=== PATIENT | female | born 1970 | race Caucasian/White ===

== ENCOUNTER 2020-10-02 16:25 | Inpatient (IN) | payer OTHER ==
[~2020-10-02] VITALS: Ht 154.9 cm; Wt 109.5 kg
[2020-10-02 16:53] LABS: BASOPHILS ABSOLUTE AUTO 0.13 K/mm3 (0.00-0.23); BASOPHILS PERCENT AUTO 0 % (0-2); Hematocrit 29.7 % (33.0-51.0); Hemoglobin 9.6 g/dL (11.5-16.0); LYMPHOCYTES ABSOLUTE AUTO 1.42 K/mm3 (0.84-5.20); LYMPHOCYTES PERCENT AUTO 3 % (21-46); MONOCYTES PERCENT AUTO 2 % (4-13); Mean Corpuscular HGB 25.6 pg (26.0-34.0); Mean Corpuscular HGB Conc 32.3 g/dL (31.5-36.5); Mean Corpuscular Volume 79 fL (80-100); Mean Platelet Volume 12.8 fL (9.1-12.4); Platelet Count 196 K/mm3 (150-400); RDW Coefficient Variation 15.9 % (11.7-14.2); RDW Standard Deviation 45.5 fL (35.1-46.3); Red Blood Cell Count 3.75 M/mm3 (3.80-5.20); White Blood Cell Count 42.94 K/mm3 (4.00-11.30)
[2020-10-02 16:56] LABS: EOSINOPHILS PERCENT AUTO 0 % (0-6); IMMATURE GRAN ABSOLUTE AUTO 2.07 K/mm3 (0.00-0.10); IMMATURE GRAN PERCENT AUTO 5 % (0-1); NEUTROPHILS ABSOLUTE AUTO 38.42 K/mm3 (1.96-9.15); NEUTROPHILS PERCENT AUTO 90 % (41-73)
[2020-10-02 17:22] LABS: Albumin, Blood 1.2 g/dL (3.4-5.0); Albumin/Globulin Ratio 0.2 (0.8-1.8); Bilirubin, Total 1.1 mg/dL (0.1-1.0); Bun/Creatinine Ratio 10.7 (12.0-20.0); Calcium, Blood 7.6 mg/dL (8.5-10.1); Creatinine, Blood 3.17 mg/dL (0.40-1.00); Globulin, Blood 5.3 g/dL (2.2-4.0); Potassium, Blood 3.6 mmol/L (3.5-5.5); Total Protein, Blood 6.5 g/dL (6.4-8.2)
[2020-10-02 17:52] LABS: Magnesium, Blood 1.8 mg/dL (1.6-2.4); Troponin I <0.015 ng/mL (0.000-0.040)
[2020-10-02 17:53] LABS: Source, Urine Clean Catch
[2020-10-02 18:03] LABS: Appearance, Urine Turbid (Clear); Bilirubin, Urine Neg (Neg); Blood, Urine 5+ (Neg); Color, Urine Brown (P-Yellow); Glucose Qualitative, Urine 4+ (Neg); Ketones, Urine 1+ (Neg); Leukocyte Esterase, Urine 3+ (Neg); Nitrite, Urine Pos (Neg); Protein, Urine 4+ (Neg); Specific Gravity, Urine 1.015 (1.003-1.022); Urobilinogen, Urine 1+ (Normal)
[2020-10-02 18:28] LABS: Beta-hydroxybutyrate 3.4 mg/dL (0.2-2.8)
[2020-10-02 18:46] LABS: Bacteria Many /hpf; Red Blood Cells, Urine TNTC /hpf (0-2); Squamous Epithelial Cells Few /hpf (Few); White Blood Cells, Urine TNTC /hpf (0-5)
[2020-10-02 19:33] LABS: Influenza A, PCR NEGATIVE (NEGATIVE); Influenza B, PCR NEGATIVE (NEGATIVE); Resp Syncytial Virus, PCR NEGATIVE (NEGATIVE); SARS-Cov-2 (COVID-19) PCR, MMC NEGATIVE (NEGATIVE)
[2020-10-02 20:51] LABS: Base Excess Venous -5.6 mmol/L; Bicarbonate Venous 20.3 mmol/L (24.0-30.0); PCO2 Venous 33.3 mmHg (38-42); PO2 Venous 126 mmHg (38-42); pH Blood Venous 7.38 (7.34-7.37)
[2020-10-02 21:17] LABS: Glucose, Blood 531 mg/dL (70-99)
[2020-10-02 22:38] LABS: Glucose, Blood 550 mg/dL (70-99)
--- NOTE | 2020-10-02 23:00 | NUR ---
Admit from ED to ICU 2044 Pt to ICU 2 via asher, accompanied by ED nurse Charles and coating technician. A/O X 4, able to answer all questions and assist with turns in bed. Pt states she has not seen provider since 2011 and does not have any comorbidities. Pt is on RA, NSR, and VSS. Upon arrival insulin GTT 4 u/hr (infusing via left hand IV), see flow sheet. Pt appears diaphoretic and flushed. Denies nausea and pain upon arrival. No V/D. Able to use bedpan to urinate, cloudy tea colored sediment urine output. Pt denies burning or frequent urination. Lower extrems elevated due to pt having edema. Will continue to monitor.
[2020-10-02 23:01] LABS: U Amphetamine Screen DETECTED; U Barbituate Screen Not Detected; U Benzodiazapine Screen Not Detected; U Buprenorphine Screen Not Detected; U Cannabinoids Screen Not Detected; U Cocaine Screen Not Detected; U Methadone Screen Not Detected; U Methamphetamine Screen DETECTED; U Opiates Screen Not Detected; U Oxycodone Screen Not Detected; U Phencyclidine Screen Not Detected; U Propoxyphene Screen Not Detected
--- NOTE | 2020-10-03 | NUR ---
Update - ED fluids Attempted to contact Charles ED nurse to confirm amount of fluid patient recieved. Nurse gone home for the day, unable to confirm Called pharmacy to confirm fluids not recieved. Pharmacy states 2 L of NS removed from [facility] but only one bag was documented on. Per ED nurse report patient recieved 2 L NS in ED. jd edwards developer, Lacey, also printed report from pyxis to confirm fluids removed and asked to document against fluids in emar. Also, noticed patient did not receive 2 L LR in ED. Updated Beth CARD GRINDER HELPER, recieved orders to start LR (not WO but over two hours). Confirmed with pharmacy that pt did not recieved LR in ED. Pharmacist changed ED orders to allow this nurse to pull fluids from pyxis, see emar.
--- NOTE | 2020-10-03 01:00 | NUR ---
Update Patient was nausea, treated with Zofran with good effect. Currently sleeping. VSS. NSR. Insulin gtt 7 u/hr.
--- NOTE | 2020-10-03 03:59 | NUR ---
Update Provider Call Pt hyperventilating (RR 40-50's, SPO2 88), hypertensive, and shaking. This occured while warehouse general laborer attempting to draw blood for morning labs (difficult draw). Pt denies nausea or pain. States being cold. Charge nurse at bedside to help motor coach tour operator patient to slow down breathing. Dr. Mae called and updated on pt status. New orders reiceved, see emar. One time dose of Ativan given with good effect. Pt placed on 1 L via NC, SPO2 > 90%. Call light within reach. Insulin GTT 7 u/hr.
[2020-10-03 05:03] LABS: Hematocrit 29.5 % (33.0-51.0); Hemoglobin 9.8 g/dL (11.5-16.0); Mean Corpuscular HGB 25.8 pg (26.0-34.0); Mean Corpuscular HGB Conc 33.2 g/dL (31.5-36.5); Mean Corpuscular Volume 78 fL (80-100); Mean Platelet Volume 12.4 fL (9.1-12.4); Platelet Count 139 K/mm3 (150-400); RDW Coefficient Variation 15.6 % (11.7-14.2); RDW Standard Deviation 43.4 fL (35.1-46.3); White Blood Cell Count 27.62 K/mm3 (4.00-11.30)
--- NOTE | 2020-10-03 05:30 | NUR ---
Shift Summary Pt resting t/o shift except one episode of increased RR, hypertension, shaking, and decreased SPO2, see previous note. Pt is A/O X 4 and able to turn self in bed. Insulin GTT 6 u/hr, see flow sheet. Pt has KCL infusing via right AC, see emar. Pt with increased temp (100.5) temporal, continues to appear flushed/clammy. One episode of nausea t/o shift, treated per emar. Pt uses bedpan frequently, dark tea colored sedimented urine. BP has improved after one time dose of Ativan. NSR. Remains on 1 L via NC. Will report to oncoming shift.
--- NOTE | 2020-10-03 05:37 | NUR ---
UPDATE - LR Fluids LR second bag infusion stopped per Dr. Mae. 300 MLS of LR left in bag.
[2020-10-03 05:41] LABS: Alanine Aminotransfer (ALT/SGP 26 U/L (12-78); Albumin, Blood 1.1 g/dL (3.4-5.0); Albumin/Globulin Ratio 0.2 (0.8-1.8); Alk Phos 265 U/L (50-136); Anion Gap 11 mmol/L (6-16); Aspartate Aminotrans (AST/SGOT 38 U/L (12-37); Bilirubin, Total 1.1 mg/dL (0.1-1.0); Blood Urea Nitrogen 34 mg/dL (8-24); Bun/Creatinine Ratio 12.1 (12.0-20.0); CO2, Blood 21 mmol/L (21-32); Calcium, Blood 7.4 mg/dL (8.5-10.1); Chloride, Blood 91 mmol/L (98-108); Creatinine, Blood 2.81 mg/dL (0.40-1.00); Globulin, Blood 5.1 g/dL (2.2-4.0); Glomerular Filtration Rate 19 (60-); Glucose, Blood 309 mg/dL (70-99); Potassium, Blood 4.3 mmol/L (3.5-5.5); Sodium, Blood 123 mmol/L (136-145); Total Protein, Blood 6.2 g/dL (6.4-8.2); Vancomycin, Random 12.3 ug/mL
--- NOTE | 2020-10-03 08:37 | NUR ---
ASSUMED CARE OF PT, REPORT RCV'D FROM FARRAH SMITH. PT ALERT AND ORIENTED, PT ABLE TO ASSIST WITH CARE WEAKLY. LUNG SOUNDS CLEAR BILATERALLY WITH DIM BASES. SATS 96% ON ROOM AIR, SHALLOW TACHYPNEIC BREATHS. PT COMPLAINS OF 6/10 ABDOMINAL PAIN WITH PALPATION. DENIES NAUSEA AT THIS TIME. PT URINATES USING BED CARTER, URINE DARK BROWN MALODOROUS WITH SEDIMENT. KCL INFUSING @ 250 ML/HR, INSULIN GTT @ 5 UNITS/HR. SEE FULL SHIFT ASSESSMENT.
[2020-10-03 09:42] LABS: Source, Urine Catheter
[2020-10-03 09:46] LABS: Appearance, Urine Turbid (Clear); Bilirubin, Urine Neg (Neg); Blood, Urine 5+ (Neg); Color, Urine Amber (P-Yellow); Glucose Qualitative, Urine 2+ (Neg); Ketones, Urine Neg (Neg); Leukocyte Esterase, Urine 3+ (Neg); Nitrite, Urine Neg (Neg); Protein, Urine 4+ (Neg); Urobilinogen, Urine NORM (Normal)
[2020-10-03 09:55] LABS: White Blood Cells, Urine TNTC /hpf (0-5)
[2020-10-03 09:57] LABS: Bacteria Many /hpf; Squamous Epithelial Cells Few /hpf (Few)
[2020-10-03 16:10] LABS: Bun/Creatinine Ratio 12.9 (12.0-20.0); Creatinine, Blood 2.87 mg/dL (0.40-1.00); Potassium, Blood 5.1 mmol/L (3.5-5.5)
--- NOTE | 2020-10-03 18:30 | NUR ---
NO ACUTE CHANGES THIS SHIFT. PT APPEARS VERY SLEEPY BUT IS ALERT AND ORIENTED TO VERBAL STIMULATION. PT REPOSITIONS SELF NEEDED. ABLE TO STAND WITH PHYSICAL THERAPY AT BEDSIDE USING GAIT BELT, TOLERATED WELL. LUNG SOUNDS REMAIN CLEAR, 96-97% ON ROOM AIR. PT NSR AND BP WNL. PT DENIES PAIN AT REST AND REPORTS "SLIGHT" ABDOMINAL PAIN WITH PALPATION. 250 ML TURBID BROWN URINARY OUTPUT FROM SERRANO. NS @ 75 ML/HR. PT'S NIECE YONAS UPDATED WITH PT'S MEDICAL STATUS AND PLAN OF CARE. WILL REPORT TO ONCOMING NURSE.
--- NOTE | 2020-10-03 19:15 | NUR ---
ASSUMED CARE OF PATIENT. SHE IS SLEEPING AND SLOW TO AWAKEN BY VOICE, BUT IS AOX4/4. SHE DENIES PAIN, STATES SHE JSUT DOESN'T FEEL WELL. BED LEFT LOW FOR SAFETY AND CALL LIGHT IN REACH.
--- NOTE | 2020-10-03 19:30 | NUR ---
PT ASSISTS WITH ORAL CARE AND LINEN IS CHANGED. DENTITION IS POOR. PT DECLINES WATER OR FOOD AT THIS TIME. SHE DID NOT EAT HER DINNER. STAT LOCK FOR SERRANO REPLACED AND SERRANO DRAINING TO GRAVITY.
[2020-10-03 20:50] LABS: Vancomycin, Trough 20.2 ug/mL (5.0-10.0)
[2020-10-04 04:29] LABS: Anion Gap 9 mmol/L (6-16); Blood Urea Nitrogen 43 mg/dL (8-24); Bun/Creatinine Ratio 14.2 (12.0-20.0); CO2, Blood 19 mmol/L (21-32); Calcium, Blood 7.3 mg/dL (8.5-10.1); Chloride, Blood 98 mmol/L (98-108); Creatinine, Blood 3.03 mg/dL (0.40-1.00); Glomerular Filtration Rate 17 (60-); Glucose, Blood 273 mg/dL (70-99); Potassium, Blood 4.8 mmol/L (3.5-5.5); Sodium, Blood 126 mmol/L (136-145)
[2020-10-04 04:36] LABS: Hematocrit 25.3 % (33.0-51.0); Hemoglobin 8.2 g/dL (11.5-16.0); Mean Corpuscular HGB 25.2 pg (26.0-34.0); Mean Corpuscular HGB Conc 32.4 g/dL (31.5-36.5); Mean Corpuscular Volume 78 fL (80-100); Mean Platelet Volume 12.4 fL (9.1-12.4); Platelet Count 82 K/mm3 (150-400); RDW Coefficient Variation 15.8 % (11.7-14.2); RDW Standard Deviation 44.4 fL (35.1-46.3); Red Blood Cell Count 3.26 M/mm3 (3.80-5.20)
--- NOTE | 2020-10-04 05:10 | NUR ---
LAB RESULTS REPORTED TO DR. SPARROW, NO NEW ORDERS RECEIVED.
--- NOTE | 2020-10-04 06:19 | NUR ---
SHIFT SUMMARY PT REMAINS LETHARGIC AND SLEEPS ALL NIGHT. SHE IS EASILY AWAKENED BY VOICE AND ANSWERS ALL QUESTIONS APPROPRIATELY. SHE DENIES PAIN BUT STATES SHE DOESN'T FEEL WELL. VS WNL. AM LABS REPORTED TO DR SPARROW, NO NEW ORDERS. H&H AND PLATELETS HAVE DROPPED, BUT WBC IMPROVING. WILL CONTINUE TO MONITOR AND REPORT TO ONCOMING SHIFT.
[2020-10-04 09:11] LABS: HBSAG SCREEN Negative (Negative); HEP B CORE AB, TOT Negative (Negative); HEP C VIRUS AB 0.1 (0.0-0.9)
--- NOTE | 2020-10-04 17:13 | NUR ---
SHIFT SUMMARY NO ACUTE CHANGES THIS SHIFT. PT HAS REMAINED ALERT AND ORIENTED WHEN AWAKE, BUT DROWSEY AND LETHARGIC MOST OF THE SHIFT. PT ANSWERS QUESTIONS APPROPRIATELY WHEN AWAKE. VITAL SIGNS STABLE. PT REMAINS ON ROOM AIR. PT UP TO CHAIR WITH PHYSICAL THERAPY TODAY. NS INFUSING AT 75 ML/HR. PT TOLERATING PO DIET WELL. SERRANO REMAINS IN PLACE WITH DARK YELLOW URINE OUTPUT NOTED. PT SHIFTING SELF AROUND IN BED INDEPENDENTLY. WILL CONTINUE TO MONITOR AND REPORT OFF TO ONCOMING RN.
--- NOTE | 2020-10-04 19:00 | NUR ---
Report received from OBSTETRICS TEACHER Tree. Patient arrived to unit with MARKETING ANALYTICS ANALYST via w/c. NS @ 75 infusing at time of arrival. Settled to bed, call light in reach. Report given to night FARRAH Medrano.
--- NOTE | 2020-10-05 00:24 | NUR ---
10/04/20 1900 REPORT RECEIVED FROM FARRAH BALLARD ON MEDICAL FLOOR; PT ARRIVED TO ROOM VIA WHEELCHAIR FROM ICU; ALERT AND ORIENTED X 3; BED ALARM APPLIED FOR SAFETY.
--- NOTE | 2020-10-05 04:16 | NUR ---
SHIFT SUMMARY: 50 Y/O OBESE FEMALE RESTED COMFORTABLY ALL SHIFT; SERRANO DRAINING CLEAR YELLOW FLUID; PT ALERT AND ORIENTED X 2, ABLE TO FOLLOW SIMPLE VERBAL COMMANDS; LETHARGIC AT TIMES SHE SLEPT ENTIRE SHIFT AFTER TRANSFER TO UNIT FROM ICU; BED ALARM APPLIED FOR SAFETY, BED LOW POSITION WITH CALL LIGHT AT SIDE.
[2020-10-05 04:55] LABS: Hematocrit 27.5 % (33.0-51.0); Hemoglobin 8.8 g/dL (11.5-16.0); Mean Corpuscular HGB 25.4 pg (26.0-34.0); Mean Corpuscular Volume 79 fL (80-100); Mean Platelet Volume 12.3 fL (9.1-12.4); Platelet Count 82 K/mm3 (150-400); RDW Coefficient Variation 16.4 % (11.7-14.2); RDW Standard Deviation 46.5 fL (35.1-46.3); Red Blood Cell Count 3.47 M/mm3 (3.80-5.20); White Blood Cell Count 16.35 K/mm3 (4.00-11.30)
[2020-10-05 05:14] LABS: Anion Gap 10 mmol/L (6-16); Blood Urea Nitrogen 49 mg/dL (8-24); Bun/Creatinine Ratio 16.2 (12.0-20.0); CO2, Blood 19 mmol/L (21-32); Calcium, Blood 7.3 mg/dL (8.5-10.1); Chloride, Blood 99 mmol/L (98-108); Creatinine, Blood 3.03 mg/dL (0.40-1.00); Glomerular Filtration Rate 17 (60-); Glucose, Blood 235 mg/dL (70-99); Potassium, Blood 4.7 mmol/L (3.5-5.5); Sodium, Blood 128 mmol/L (136-145); Vancomycin, Random 24.9 ug/mL
[2020-10-05 05:42] LABS: BAND PERCENT MAN 4 % (0-8); BASOPHILS PERCENT MAN 0 % (0-2); EOSINOPHILS PERCENT MAN 0 % (0-6); LYMPHOCYTES ABSOLUTE MAN 1.47 K/mm3 (0.84-5.20); LYMPHOCYTES PERCENT MAN 9 % (21-46); MONOCYTES ABSOLUTE MAN 0.81 K/mm3 (0.16-1.47); MONOCYTES PERCENT MAN 5 % (4-13); MYELOCYTE ABSOLUTE MAN 0.16 K/mm3 (0.00-0.00); MYELOCYTE PERCENT MAN 1 % (0-0); NEUTROPHILS ABSOLUTE MAN 13.89 K/mm3 (1.96-9.15); SEG NEUTROPHILS PERCENT MAN 81 % (41-73); TOTAL CELLS COUNTED 100
--- NOTE | 2020-10-05 11:24 | NUR ---
CBG ACHS/HUMALOG Patient tolerating PO intake. Blood sugar checks and insulin changed to ACHS.
--- NOTE | 2020-10-05 16:57 | NUR ---
Shift Summary A/Ox4, pleasant and cooperative. Drifts in and out of sleep throughout the day, alert enough to answer questions appropriately, eat meals, and take meds. Weakness t/o all extremities. Palafox draining cloudy yellow urine. Powerglide to TERESO with NS @ 75 infusing. Denies pain, nausea, vomiting, diarrhea, shortness of breath. No acute changes. WCTM.
[2020-10-06 04:52] LABS: Hematocrit 25.6 % (33.0-51.0); Hemoglobin 8.2 g/dL (11.5-16.0); Mean Corpuscular HGB 25.6 pg (26.0-34.0); Mean Corpuscular Volume 80 fL (80-100); Mean Platelet Volume 12.3 fL (9.1-12.4); Platelet Count 66 K/mm3 (150-400); RDW Coefficient Variation 16.4 % (11.7-14.2); RDW Standard Deviation 47.9 fL (35.1-46.3); White Blood Cell Count 13.91 K/mm3 (4.00-11.30)
[2020-10-06 05:09] LABS: Bun/Creatinine Ratio 17.2 (12.0-20.0); Calcium, Blood 7.5 mg/dL (8.5-10.1); Creatinine, Blood 3.19 mg/dL (0.40-1.00); Potassium, Blood 4.7 mmol/L (3.5-5.5)
--- NOTE | 2020-10-06 05:54 | NUR ---
PT HAS SLEPT THROUGH SHIFT, ANSWERS AND FOLLOWS DIRECTIONS WHEN ASKED. CBG AC/HS, PT INSULIN COVERAGE NOT INDICATED THIS SHIFT PER HS S/S. SERRANO CATH DRAINING CLOUDY YELLOW URINE, POWERGLIDE IN TERESO, LABS DRAWN THIS AM VIA POWERGLIDE.
--- NOTE | 2020-10-06 18:17 | NUR ---
Shift Summary A/Ox4, more awake today. Up in chair for meals. Chatted with friend visitor. Up to bedside commode x 1 assist. Patient having frequent loose mucousy stools, currently on Rocephin and Vanco. Palafox catheter d/c per V.O. from Dr. Harper. PO fluid intake is adequate. Calls for needs appropriately. No acute concerns. WCTM.
[2020-10-07 04:42] LABS: Hematocrit 27.7 % (33.0-51.0); Hemoglobin 8.6 g/dL (11.5-16.0); Mean Corpuscular Volume 81 fL (80-100); Mean Platelet Volume 12.8 fL (9.1-12.4); Platelet Count 105 K/mm3 (150-400); RDW Coefficient Variation 16.7 % (11.7-14.2); RDW Standard Deviation 48.3 fL (35.1-46.3); Red Blood Cell Count 3.44 M/mm3 (3.80-5.20); White Blood Cell Count 20.09 K/mm3 (4.00-11.30)
[2020-10-07 05:04] LABS: Anion Gap 8 mmol/L (6-16); Blood Urea Nitrogen 55 mg/dL (8-24); Bun/Creatinine Ratio 16.7 (12.0-20.0); CO2, Blood 21 mmol/L (21-32); Calcium, Blood 7.5 mg/dL (8.5-10.1); Chloride, Blood 101 mmol/L (98-108); Glomerular Filtration Rate 16 (60-); Glucose, Blood 258 mg/dL (70-99); Phosphorus, Blood 2.8 mg/dL (2.5-4.9); Potassium, Blood 5.2 mmol/L (3.5-5.5); Sodium, Blood 130 mmol/L (136-145)
--- NOTE | 2020-10-07 05:39 | NUR ---
PT IS A/O, URINE MIA COLORED, 1-ASSIST TO GET UP OOB. CBG AC/HS, NO COVERAGE INDICATED THIS SHIFT PER HS S/S. PT USED CALL LIGHT THIS SHIFT. RENAL CONSULT IN AM.
[2020-10-07 05:58] LABS: BAND PERCENT MAN 20 % (0-8); BASOPHILS PERCENT MAN 0 % (0-2); EOSINOPHILS PERCENT MAN 1 % (0-6); LYMPHOCYTES PERCENT MAN 6 % (21-46); METAMYELOCYTE PERCENT MAN 1 % (0-0); MONOCYTES PERCENT MAN 4 % (4-13); MYELOCYTE PERCENT MAN 3 % (0-0); NEUTROPHILS ABSOLUTE MAN 17.07 K/mm3 (1.96-9.15); SEG NEUTROPHILS PERCENT MAN 65 % (41-73); TOTAL CELLS COUNTED 100
[2020-10-07 15:03] LABS: Appearance, Urine Cloudy (Clear); Bilirubin, Urine Neg (Neg); Blood, Urine 5+ (Neg); Color, Urine Yellow (P-Yellow); Glucose Qualitative, Urine 3+ (Neg); Ketones, Urine Neg (Neg); Leukocyte Esterase, Urine 3+ (Neg); Nitrite, Urine Neg (Neg); Protein, Urine 3+ (Neg); Urobilinogen, Urine NORM (Normal)
[2020-10-07 15:33] LABS: White Blood Cells, Urine TNTC /hpf (0-5)
[2020-10-07 15:34] LABS: Bacteria Many /hpf; Squamous Epithelial Cells Few /hpf (Few); Yeast/Fungi Urine Few /hpf
[2020-10-07 16:00] LABS: Anion Gap 9 mmol/L (6-16); Blood Urea Nitrogen 57 mg/dL (8-24); Bun/Creatinine Ratio 17.7 (12.0-20.0); CO2, Blood 19 mmol/L (21-32); Calcium, Blood 7.3 mg/dL (8.5-10.1); Chloride, Blood 100 mmol/L (98-108); Creatinine, Blood 3.22 mg/dL (0.40-1.00); Glomerular Filtration Rate 16 (60-); Glucose, Blood 297 mg/dL (70-99); Phosphorus, Blood 2.6 mg/dL (2.5-4.9); Potassium, Blood 4.5 mmol/L (3.5-5.5); Sodium, Blood 128 mmol/L (136-145)
--- NOTE | 2020-10-07 17:27 | NUR ---
Echocardiogram completed.
--- NOTE | 2020-10-07 18:11 | NUR ---
SHIFT SUMMARY PT IS A&O AND ABLE TO MAKE NEEDS KNOWN. PT DOES NOT ALWAYS USE THE CALL LIGHT, WILL WAIT UNTIL STAFF ENTERS THE ROOM TO LET THEM KNOW WHAT SHE NEEDS. UNABLE TO START THE 24HOUR URINE COLLECTION DUE TO EVERY TIME THE PATIENT USES THE COMODE SHE ALSO HAS A BM THAT MIXES WITH SPECIMEN. PT WAS UP IN CHAIR FOR MEALS. PT IS CURENTLY IN CHAIR FINISHING DINNER. CALL LIGHT W/IN REACH.
--- NOTE | 2020-10-08 04:27 | NUR ---
SHIFT SUMMARY A/O, ABLE TO MAKE NEEDS KNOWN. COOPERATIVE WITH CARE. DOES NOT UTILIZE CALL SYSTEM. NO C/O PAIN/DISCOMFORT. APPEARED TO REST MUCH OF THE NIGHT. 1P ASSIST TO BSC. FLUIDS CONTINUE TO INFUSE TO TERESO PG WITHOUT ANY COMPLICATIONS. STARTED 24 HOUR URINE THIS SHIFT. NO ACUTE CHANGES NOTED OVERNIGHT. BED REMAINS WITHIN LOWEST POSITION; ALARM ON. CALL LIGHT AND BELONGINGS WITHIN REACH. CONTINUE WITH CURRENT PLAN OF CARE. REPORT TO ONCOMING RN.
[2020-10-08 05:49] LABS: Hematocrit 23.7 % (33.0-51.0); Hemoglobin 7.6 g/dL (11.5-16.0); Mean Corpuscular HGB 25.6 pg (26.0-34.0); Mean Corpuscular HGB Conc 32.1 g/dL (31.5-36.5); Mean Corpuscular Volume 80 fL (80-100); Mean Platelet Volume 11.9 fL (9.1-12.4); Platelet Count 86 K/mm3 (150-400); RDW Coefficient Variation 16.6 % (11.7-14.2); RDW Standard Deviation 48.8 fL (35.1-46.3); Red Blood Cell Count 2.97 M/mm3 (3.80-5.20)
[2020-10-08 06:11] LABS: BAND PERCENT MAN 10 % (0-8); BASOPHILS PERCENT MAN 0 % (0-2); EOSINOPHILS ABSOLUTE MAN 0.19 K/mm3 (0.00-0.68); EOSINOPHILS PERCENT MAN 1 % (0-6); LYMPHOCYTES ABSOLUTE MAN 1.58 K/mm3 (0.84-5.20); LYMPHOCYTES PERCENT MAN 8 % (21-46); METAMYELOCYTE ABSOLUTE MAN 0.39 K/mm3 (0.00-0.00); METAMYELOCYTE PERCENT MAN 2 % (0-0); MONOCYTES ABSOLUTE MAN 0.99 K/mm3 (0.16-1.47); MONOCYTES PERCENT MAN 5 % (4-13); NEUTROPHILS ABSOLUTE MAN 16.63 K/mm3 (1.96-9.15); SEG NEUTROPHILS PERCENT MAN 74 % (41-73); TOTAL CELLS COUNTED 100
[2020-10-08 06:30] LABS: Albumin/Globulin Ratio 0.2 (0.8-1.8); Bilirubin, Total 0.4 mg/dL (0.1-1.0); Bun/Creatinine Ratio 18.2 (12.0-20.0); Calcium, Blood 7.2 mg/dL (8.5-10.1); Creatinine, Blood 3.14 mg/dL (0.40-1.00); Globulin, Blood 4.9 g/dL (2.2-4.0); Percent Saturation 18.2 % (15.0-50.0); Potassium, Blood 4.5 mmol/L (3.5-5.5); Total Protein, Blood 5.9 g/dL (6.4-8.2)
--- NOTE | 2020-10-08 10:25 | NUR ---
PT TO IMAGING FOR CT SCAN OF CHEST AND ABDOMEN
--- NOTE | 2020-10-08 10:38 | NUR ---
PT RETURN FROM IMAGING
--- NOTE | 2020-10-08 16:40 | NUR ---
PT HAS BEEN UP TO BSC FREQUENTLY AND HAS HAD MIXED URINE AND STOOL. DR AVILES INFORMED, 24 HOUR URINE ON HOLD AT THIS TIME.
[2020-10-08 17:08] LABS: ANA DIRECT Negative (Negative); ANTI-DNA (DS) AB QN <1 IU/mL (0-9); RNP ANTIBODIES 0.7 AI (0.0-0.9); SJOGREN'S ANTI-SS-A <0.2 AI (0.0-0.9); SJOGREN'S ANTI-SS-B <0.2 AI (0.0-0.9); SMITH ANTIBODIES <0.2 AI (0.0-0.9)
--- NOTE | 2020-10-08 18:50 | NUR ---
PT HAD CT OF CHEST AND ABDOMEN, SEE CHART FOR DETAILS, LASIX IV AND ARANESP STARTED THIS EVENING, IVF DISCONTINUED, 24 HOUR URINE ON HOLD FOR NOW PER DR AVILES. DR GLOVER STARTED FLAGYL IV Q8 HR, UP TO BEDSIDE CHAIR SEVERAL TIMES TODAY. SHE IS PLEASANT AND COOPERATIVE WITH CARE. NO ACUTE CHANGES NOTED THIS SHIFT, WILL CONTINUE TO MONITOR AND REPORT TO ONCOMING RN
[2020-10-09 04:43] LABS: Hematocrit 24.5 % (33.0-51.0); Hemoglobin 7.6 g/dL (11.5-16.0); Mean Corpuscular HGB 25.1 pg (26.0-34.0); Mean Corpuscular Volume 81 fL (80-100); Mean Platelet Volume 12.3 fL (9.1-12.4); Platelet Count 100 K/mm3 (150-400); Red Blood Cell Count 3.03 M/mm3 (3.80-5.20); White Blood Cell Count 19.58 K/mm3 (4.00-11.30)
[2020-10-09 04:56] LABS: Bun/Creatinine Ratio 19.8 (12.0-20.0); Calcium, Blood 7.5 mg/dL (8.5-10.1); Creatinine, Blood 3.18 mg/dL (0.40-1.00); Potassium, Blood 4.3 mmol/L (3.5-5.5)
[2020-10-09 04:58] LABS: BAND PERCENT MAN 2 % (0-8); BASOPHILS PERCENT MAN 0 % (0-2); EOSINOPHILS ABSOLUTE MAN 0.19 K/mm3 (0.00-0.68); EOSINOPHILS PERCENT MAN 1 % (0-6); LYMPHOCYTES ABSOLUTE MAN 0.19 K/mm3 (0.84-5.20); LYMPHOCYTES PERCENT MAN 1 % (21-46); METAMYELOCYTE ABSOLUTE MAN 0.39 K/mm3 (0.00-0.00); METAMYELOCYTE PERCENT MAN 2 % (0-0); MONOCYTES ABSOLUTE MAN 0.19 K/mm3 (0.16-1.47); MONOCYTES PERCENT MAN 1 % (4-13); SEG NEUTROPHILS PERCENT MAN 93 % (41-73); TOTAL CELLS COUNTED 100
--- NOTE | 2020-10-09 05:35 | NUR ---
SHIFT SUMMARY AOX3. VSS. REPORTS R SIDE ABD DISCOMFORT, STATES "ITS FROM THE SHOTS". ABD MOD DISTENDED, FIRM, TENDER TO PALPATION. ACTIVE BT. REPORTS MULTIPLE LOOSE/SOFT BM ON DAY SHIFT, NONE TONIGHT. DENIES N/V. DENIES DYSPNEA. SPO2 >90% ON RA, E/U RESPIRATIONS, LUNGS DIM IN BASES. +3 PITTING EDEMA & N/T TO BLE. HAD SHOWER THIS AM. CALL LIGHT IN REACH & PT ABLE TO MAKE NEEDS KNOWN, WCTM.
--- NOTE | 2020-10-09 17:59 | NUR ---
PT IS ALERT AND ORIENTED AND FRIENDLY WITH STAFF. PT EDUCATED REGARDING HER NEW DM2 DX. PT IS EAGER TO CONTROL HER DM2 THROUGH DIET. UNABLE TO OBTAIN URINE SPECIMEN DUE TO LOOSE STOOL IN URINE. PT UP IN RECLINER WITH FEET UP. EDEMA 2. CALL LIGHT WITHIN REACH.
[2020-10-10 06:47] LABS: Hematocrit 24.3 % (33.0-51.0); Hemoglobin 7.6 g/dL (11.5-16.0); Mean Corpuscular HGB 25.4 pg (26.0-34.0); Mean Corpuscular HGB Conc 31.3 g/dL (31.5-36.5); Mean Corpuscular Volume 81 fL (80-100); Mean Platelet Volume 11.8 fL (9.1-12.4); Platelet Count 130 K/mm3 (150-400); RDW Coefficient Variation 17.2 % (11.7-14.2); RDW Standard Deviation 50.7 fL (35.1-46.3); Red Blood Cell Count 2.99 M/mm3 (3.80-5.20); White Blood Cell Count 23.24 K/mm3 (4.00-11.30)
[2020-10-10 07:08] LABS: Albumin, Blood 1.3 g/dL (3.4-5.0); Albumin/Globulin Ratio 0.2 (0.8-1.8); Bilirubin, Total 0.4 mg/dL (0.1-1.0); Bun/Creatinine Ratio 24.3 (12.0-20.0); Calcium, Blood 7.6 mg/dL (8.5-10.1); Creatinine, Blood 2.8 mg/dL (0.40-1.00); Globulin, Blood 5.3 g/dL (2.2-4.0); Total Protein, Blood 6.6 g/dL (6.4-8.2)
[2020-10-10 07:15] LABS: BAND PERCENT MAN 9 % (0-8); BASOPHILS PERCENT MAN 0 % (0-2); EOSINOPHILS ABSOLUTE MAN 0.23 K/mm3 (0.00-0.68); EOSINOPHILS PERCENT MAN 1 % (0-6); LYMPHOCYTES ABSOLUTE MAN 1.62 K/mm3 (0.84-5.20); LYMPHOCYTES PERCENT MAN 7 % (21-46); METAMYELOCYTE ABSOLUTE MAN 0.46 K/mm3 (0.00-0.00); METAMYELOCYTE PERCENT MAN 2 % (0-0); MONOCYTES ABSOLUTE MAN 0.92 K/mm3 (0.16-1.47); MONOCYTES PERCENT MAN 4 % (4-13); MYELOCYTE ABSOLUTE MAN 0.23 K/mm3 (0.00-0.00); MYELOCYTE PERCENT MAN 1 % (0-0); NEUTROPHILS ABSOLUTE MAN 19.75 K/mm3 (1.96-9.15); SEG NEUTROPHILS PERCENT MAN 76 % (41-73); TOTAL CELLS COUNTED 100
--- NOTE | 2020-10-10 07:56 | NUR ---
LUMITE INJECTOR SUMMARY PATIENT SLEPT IN AND OUT OF RECLINER AND GETTING ON AND OFF THE COMMODE OVERNIGHT. MULTIPLE SMALL LOOSE BOWEL MOVEMENTS MIXED WITH URINE. A&OX4. NETO WOKE JUST BEFORE SHIFT CHANGE THIS MORNING WITH SEVERE MID CHEST STABBING PLEURITIC PAIN. ONCOMING RN INFORMED IN REPORT WHO CONTACTED DAY HOSPITALIST. CONCERNING FOR A PULMONARY EMBOLUS QUICKLY IT CAME ON. AT END OF SHIFT, EKG, LABS. DAY RN AWAITING ADDITIONAL ORDERS.
--- NOTE | 2020-10-10 17:00 | NUR ---
PT IS A/OX3, PLEASANT AND COOPERATIVE, UP WITH MINIMAL STANBY ASSIST. THE PT HAS BEEN UP IN THE [place] AMBULATING X2 TODAY SO FAR, THIS AM THE PT REPORTED HAVING SHARP LEFT SIDE CHEST PAIN WITH DEEP BREATHS. DR. GLOVER WAS CALLED ORDERS FOR TROP I , EKG, AND NITRO WERE GIVEN, PTS VS WERE WNL, THE PT WAS VERY ANXIOUS AND TEARFULL, THE NITRO DID NOT RESOLVE THE PAIN, THE EKG WAS NORMAL THE TROP WAS NORMAL, O2 WAS APPLIED AND ABOUT 1/2 HR LATER THE PT REPORETED THAT SHE FELT A LITTLE BETTER, THE PT WORKED WITH THE PHYSICAL THERAPIST AND WAS ABLE TO AMBULATE WITHOUT O2, SO FAR THIS SHIFT THE PT REPORTS THAT SHE FEELS BETTER BUT STILL HAS INTERMITTEN PAIN IN THE CHEST WITH DEEP BREATHS CALL LIGHT IN REACH, WILL CONTINUE TO MONITOR AND ASSESS FOR CHANGES. THE PT HAD A VISITOR TODAY, PT APPEARS TO BE BREATHING EASILY ON RA AT THIS TIME
[2020-10-11 06:53] LABS: Hematocrit 27.3 % (33.0-51.0); Hemoglobin 8.5 g/dL (11.5-16.0); Mean Corpuscular HGB 25.4 pg (26.0-34.0); Mean Corpuscular HGB Conc 31.1 g/dL (31.5-36.5); Mean Corpuscular Volume 82 fL (80-100); Mean Platelet Volume 11.6 fL (9.1-12.4); Platelet Count 177 K/mm3 (150-400); RDW Coefficient Variation 17.3 % (11.7-14.2); RDW Standard Deviation 50.9 fL (35.1-46.3); Red Blood Cell Count 3.34 M/mm3 (3.80-5.20); White Blood Cell Count 30.56 K/mm3 (4.00-11.30)
[2020-10-11 07:06] LABS: Albumin, Blood 1.4 g/dL (3.4-5.0); Albumin/Globulin Ratio 0.3 (0.8-1.8); Bilirubin, Total 0.5 mg/dL (0.1-1.0); Bun/Creatinine Ratio 22.2 (12.0-20.0); Calcium, Blood 7.7 mg/dL (8.5-10.1); Creatinine, Blood 3.02 mg/dL (0.40-1.00); Globulin, Blood 5.4 g/dL (2.2-4.0); Total Protein, Blood 6.8 g/dL (6.4-8.2)
[2020-10-11 07:16] LABS: BAND PERCENT MAN 5 % (0-8); BASOPHILS PERCENT MAN 1 % (0-2); EOSINOPHILS PERCENT MAN 0 % (0-6); LYMPHOCYTES ABSOLUTE MAN 3.36 K/mm3 (0.84-5.20); LYMPHOCYTES PERCENT MAN 11 % (21-46); MONOCYTES PERCENT MAN 1 % (4-13); MYELOCYTE PERCENT MAN 1 % (0-0); NEUTROPHILS ABSOLUTE MAN 26.28 K/mm3 (1.96-9.15); SEG NEUTROPHILS PERCENT MAN 81 % (41-73); TOTAL CELLS COUNTED 100
--- NOTE | 2020-10-11 07:33 | NUR ---
INDUSTRIAL PSYCHOLOGY TEACHER SUMMARY Valentina was much more comfortable last night. She did switch between her bed and the recliner independently as well as the bathroom. 24 hour urine continues, however, each time the patient had a bowel movement, she would remove the hat in the toilet and that urine would be missed. Therefore, over the 24 hours, some of the urine will not be counted. 24 hour urine is due to be completed today at 1530.
[2020-10-11 14:11] LABS: A/G RATIO 0.4 (0.7-1.7); ALBUMIN 1.6 g/dL (2.9-4.4); ALPHA-1-GLOBULIN 0.4 g/dL (0.0-0.4); ALPHA-2-GLOBULIN 0.9 g/dL (0.4-1.0); BETA GLOBULIN 0.7 g/dL (0.7-1.3); GAMMA GLOBULIN 2.2 g/dL (0.4-1.8); GLOBULIN, TOTAL 4.2 g/dL (2.2-3.9); IMMUNOGLOBULIN A, QN, SERUM 395 mg/dL (87-352); IMMUNOGLOBULIN G, QN, SERUM 2124 mg/dL (586-1602); IMMUNOGLOBULIN M, QN, SERUM 78 mg/dL (26-217); M-SPIKE 0.2 g/dL (Not Observed); PROTEIN, TOTAL, SERUM 5.8 g/dL (6.0-8.5)
--- NOTE | 2020-10-11 17:05 | NUR ---
PT IS A/OX3, PLEASANT AND COOPERATIVE, THE PT IS UP WITH MINIMAL ASSIST, THE PT HAS BEEN IN A RECLINER WITH HER FEET UP FOR MOST OF THE DAY, THE DECLINED TO WORK WITH THE PHYSICAL THERAPIST TODAY, PT WAS UP IN A WHEELCHAIR WITH HER FRIEND OUTSIDE OF THE ROOM, THE PT APPEARS TO BE BREATHING EASILY ON RA AT THIS TIME, THE PT REPORTED DIARRHEA IMODIUM WAS GIVEN ONCE, CALL LIGHT IN REACH WILL CONTINUE TO MONITOR AND ASSESS FOR CHANGES
[2020-10-12 05:23] LABS: BASOPHILS ABSOLUTE AUTO 0.04 K/mm3 (0.00-0.23); BASOPHILS PERCENT AUTO 0 % (0-2); EOSINOPHILS ABSOLUTE AUTO 0.01 K/mm3 (0.00-0.68); EOSINOPHILS PERCENT AUTO 0 % (0-6); Hematocrit 21.7 % (33.0-51.0); Hemoglobin 6.7 g/dL (11.5-16.0); IMMATURE GRAN ABSOLUTE AUTO 0.77 K/mm3 (0.00-0.10); IMMATURE GRAN PERCENT AUTO 4 % (0-1); LYMPHOCYTES ABSOLUTE AUTO 2.12 K/mm3 (0.84-5.20); LYMPHOCYTES PERCENT AUTO 11 % (21-46); MONOCYTES ABSOLUTE AUTO 1.13 K/mm3 (0.16-1.47); MONOCYTES PERCENT AUTO 6 % (4-13); Mean Corpuscular HGB 25.4 pg (26.0-34.0); Mean Corpuscular HGB Conc 30.9 g/dL (31.5-36.5); Mean Corpuscular Volume 82 fL (80-100); Mean Platelet Volume 12.4 fL (9.1-12.4); NEUTROPHILS ABSOLUTE AUTO 14.76 K/mm3 (1.96-9.15); NEUTROPHILS PERCENT AUTO 78 % (41-73); Platelet Count 146 K/mm3 (150-400); RDW Coefficient Variation 17.6 % (11.7-14.2); RDW Standard Deviation 51.8 fL (35.1-46.3); Red Blood Cell Count 2.64 M/mm3 (3.80-5.20); White Blood Cell Count 18.83 K/mm3 (4.00-11.30)
[2020-10-12 06:25] LABS: Albumin, Blood 1.3 g/dL (3.4-5.0); Albumin/Globulin Ratio 0.3 (0.8-1.8); Bilirubin, Total 0.6 mg/dL (0.1-1.0); Bun/Creatinine Ratio 22.2 (12.0-20.0); Calcium, Blood 7.5 mg/dL (8.5-10.1); Creatinine, Blood 3.06 mg/dL (0.40-1.00); Potassium, Blood 4.1 mmol/L (3.5-5.5); Total Protein, Blood 6.3 g/dL (6.4-8.2)
--- NOTE | 2020-10-12 06:34 | NUR ---
PHYSICIAN COMMUNICATION CONTACTED DRAFTER GEOLOGICAL PHYSICIAN, DR RIZO, TO NOTIFY HIM THAT THE PATIENT'S HEMEGLOBIN THIS MORNING WAS 6.7, DOWN FROM 8.[address] RIZO ORDERED FOR THE PATIENT TO RECEIVE ONE UNIT PACKED RED BLOOD CELLS.
--- NOTE | 2020-10-12 07:44 | NUR ---
SHIFT SUMMARY PATIENT LETHARGIC THIS MORNING, HAS DIFFICULTY WAKING UP AND SLOW TO RESPOND. HAD NO COMPLAINTS OF PAIN OR SHORTNESS OF BREATH. PATIENT SLEPT WELL OVERNIGHT. POWERGLIDE PATENT AND FLUSHED. BED IN LOWEST POSITION WITH WHEELS LOCKED AND ALARM ON. CALL LIGHT WITHIN REACH. REPORT GIVEN TO ONCOMING RN.
[2020-10-12 07:51] LABS: C DIFFICILE DNA Negative (Negative)
[2020-10-12 14:26] LABS: Stool Occult Blood Guaiac 1 Neg (Neg)
[2020-10-12 16:50] LABS: Hematocrit 28.5 % (33.0-51.0)
--- NOTE | 2020-10-12 19:30 | NUR ---
SHIFT SUMMARY: NO ACUTE CHANGES TO REPORT THIS SHIFT. PT A&O; CALM AND COOPERATIVE WITH CARE. NO C/O PAIN THIS SHIFT. PER PHYSICAL THERAPY, PT IS INDEPENDENT IN ROOM. 1UNIT PRBCs TRANSFUSED THIS SHIFT; PT TOLERATED WELL. IV ABX CONTINUING. REPORT GIVEN TO ONCOMING RN.
[2020-10-13 04:54] LABS: BASOPHILS ABSOLUTE AUTO 0.06 K/mm3 (0.00-0.23); BASOPHILS PERCENT AUTO 0 % (0-2); EOSINOPHILS ABSOLUTE AUTO 0.02 K/mm3 (0.00-0.68); EOSINOPHILS PERCENT AUTO 0 % (0-6); Hematocrit 25.3 % (33.0-51.0); IMMATURE GRAN ABSOLUTE AUTO 0.58 K/mm3 (0.00-0.10); IMMATURE GRAN PERCENT AUTO 3 % (0-1); LYMPHOCYTES ABSOLUTE AUTO 2.46 K/mm3 (0.84-5.20); LYMPHOCYTES PERCENT AUTO 12 % (21-46); MONOCYTES ABSOLUTE AUTO 1.11 K/mm3 (0.16-1.47); MONOCYTES PERCENT AUTO 6 % (4-13); Mean Corpuscular HGB 25.9 pg (26.0-34.0); Mean Corpuscular HGB Conc 31.6 g/dL (31.5-36.5); Mean Corpuscular Volume 82 fL (80-100); Mean Platelet Volume 11.2 fL (9.1-12.4); NEUTROPHILS ABSOLUTE AUTO 16.09 K/mm3 (1.96-9.15); NEUTROPHILS PERCENT AUTO 79 % (41-73); Platelet Count 168 K/mm3 (150-400); RDW Coefficient Variation 17.2 % (11.7-14.2); RDW Standard Deviation 50.4 fL (35.1-46.3); Red Blood Cell Count 3.09 M/mm3 (3.80-5.20); White Blood Cell Count 20.32 K/mm3 (4.00-11.30)
[2020-10-13 05:13] LABS: Albumin, Blood 1.4 g/dL (3.4-5.0); Albumin/Globulin Ratio 0.3 (0.8-1.8); Bilirubin, Total 0.5 mg/dL (0.1-1.0); Bun/Creatinine Ratio 24.6 (12.0-20.0); Calcium, Blood 8.1 mg/dL (8.5-10.1); Creatinine, Blood 2.76 mg/dL (0.40-1.00); Globulin, Blood 5.3 g/dL (2.2-4.0); Potassium, Blood 3.6 mmol/L (3.5-5.5); Total Protein, Blood 6.7 g/dL (6.4-8.2)
--- NOTE | 2020-10-13 07:10 | NUR ---
SHIFT SUMMARY PATIENT ALERT AND ORIENTED. HAD NO COMPLAINTS OF PAIN OR SHORTNESS OF BREATH. PATIENT SLEPT WELL OVERNIGHT. NO ACUTE ISSUES NOTED. POWERGLIDE PATENT AND FLUSHED. BED IN LOWEST POSITION WITH WHEELS LOCKED. CALL LIGHT WITHIN REACH. REPORT GIVEN TO ONCOMING RN.
--- NOTE | 2020-10-13 16:21 | NUR ---
PATIENT IS PLEASANT AND COOPERATIVE WITH STAFF. SHE IS INDEPENDENT IN ROOM AND CALLS APPROPRIATELY FOR STAFF ASSIST NEEDED. BP WAS ELEVATED THIS AFTERNOON HOWEVER THE PATIENT WAS UP AMBULATING IN HER ROOM JUST PRIOR TO CHECKING IT; WILL RECHECK IT. PATIENT CONTINUES ON IV ABX WITHOUT S/SX OF ADVERSE REACTIONS NOTED OR REPORTED. BLE REMAIN VERY EDEMETOUS. CONSULT CALLED IN FOR I.D. PHYSICIAN, DR HDZ, HOWEVER BASED ON HIS ANSWERING MACHINE MESSAGE HE WILL NOT BE AVAILABLE UNTIL WEDNESDAY FOR CONSULTS. I DID INFORM DR GLOVER OF THIS. THE PATIENT IS IN ROOM AT THIS TIME. CALL LIGHT IN REACH.
[2020-10-13 21:18] LABS: Appearance, Urine Hazy (Clear); Bilirubin, Urine Neg (Neg); Blood, Urine 5+ (Neg); Color, Urine Yellow (P-Yellow); Glucose Qualitative, Urine 3+ (Neg); Ketones, Urine Neg (Neg); Leukocyte Esterase, Urine 3+ (Neg); Nitrite, Urine Neg (Neg); Protein, Urine 2+ (Neg); Urobilinogen, Urine NORM (Normal)
[2020-10-13 21:27] LABS: Bacteria Many /hpf; Squamous Epithelial Cells Few /hpf (Few); White Blood Cells, Urine TNTC /hpf (0-5)
[2020-10-14 05:02] LABS: BASOPHILS ABSOLUTE AUTO 0.05 K/mm3 (0.00-0.23); BASOPHILS PERCENT AUTO 0 % (0-2); EOSINOPHILS ABSOLUTE AUTO 0.04 K/mm3 (0.00-0.68); EOSINOPHILS PERCENT AUTO 0 % (0-6); Hemoglobin 7.5 g/dL (11.5-16.0); IMMATURE GRAN ABSOLUTE AUTO 0.29 K/mm3 (0.00-0.10); IMMATURE GRAN PERCENT AUTO 2 % (0-1); LYMPHOCYTES ABSOLUTE AUTO 2.03 K/mm3 (0.84-5.20); LYMPHOCYTES PERCENT AUTO 11 % (21-46); MONOCYTES ABSOLUTE AUTO 0.92 K/mm3 (0.16-1.47); MONOCYTES PERCENT AUTO 5 % (4-13); Mean Corpuscular HGB 25.8 pg (26.0-34.0); Mean Corpuscular HGB Conc 31.3 g/dL (31.5-36.5); Mean Corpuscular Volume 83 fL (80-100); Mean Platelet Volume 11.4 fL (9.1-12.4); NEUTROPHILS ABSOLUTE AUTO 14.53 K/mm3 (1.96-9.15); NEUTROPHILS PERCENT AUTO 81 % (41-73); Platelet Count 179 K/mm3 (150-400); RDW Coefficient Variation 17.4 % (11.7-14.2); RDW Standard Deviation 51.9 fL (35.1-46.3); Red Blood Cell Count 2.91 M/mm3 (3.80-5.20); White Blood Cell Count 17.86 K/mm3 (4.00-11.30)
[2020-10-14 05:19] LABS: Bun/Creatinine Ratio 26.8 (12.0-20.0); Calcium, Blood 8.1 mg/dL (8.5-10.1); Creatinine, Blood 2.69 mg/dL (0.40-1.00); Potassium, Blood 3.8 mmol/L (3.5-5.5)
--- NOTE | 2020-10-14 06:44 | NUR ---
SHIFT SUMMARY PATIENT ALERT AND ORIENTED. LAST NIGHT SHE SEEMED WITHDRAWN AND DEPRESSED. IN BETTER SPIRITS THIS MORNING. PATIENT HAD NO COMPLAINTS OF PAIN OR SHORTNESS OF BREATH. SLEPT WELL OVERNIGHT. POWERGLIDE PATENT AND FLUSHED. BED IN LOWEST POSITION WITH WHEELS LOCKED. CALL LIGHT WITHIN REACH. REPORT GIVEN TO ONCOMING RN.
[2020-10-14 13:09] LABS: ANA DIRECT Negative (Negative); ANTIMYELOPEROXIDASE (MPO) ABS <9.0 U/mL (0.0-9.0); ANTIPROTEINASE 3 (PR-3) ABS <3.5 U/mL (0.0-3.5); ATYPICAL PANCA <1:20 titer (Neg:<1:20); CYTOPLASMIC (C-ANCA) <1:20 titer (Neg:<1:20); PERINUCLEAR (P-ANCA) <1:20 titer (Neg:<1:20)
--- NOTE | 2020-10-14 18:20 | NUR ---
SHIFT SUMMARY PT WORKED WITH PHYSICAL THERAPY AND AMBULATED IN [place]RAU[place]. BLOOD SUGARS HAVE BEEN IN THE 200'S. PT ADMINISTERING INSULIN HERSELF. PT HAS HAD A GOOD APPETITE THIS SHIFT. PT HAVING MULITPLE LIQUID STOOLS AFTER EATING. NO COMPLAINTS OF PAIN THIS SHIFT. NO ACUTE CHANGES. POSSIBLE DISCHARGE IN THE NEXT DAY OR TWO. CALL LIGHT IN REACH. WILL CONTINUE TO MONITOR AND REPORT TO ONCOMING RN.
--- NOTE | 2020-10-15 04:33 | NUR ---
SHIFT SUMMARY NO ACUTE CHANGES THIS SHIFT, NO C/O PAIN, PT USING INSULIN SCALE TO FIGURE THEN SELF ADMIN INSULIN, INDEP W/SHOWER THIS SHIFT, CONTINUED LIQUID STOOLS, SLEEPING AT THIS TIME, CALL LIGHT IN REACH, WILL CONT TO MONITOR UNTIL REPORT GIVEN TO DAY RN.
[2020-10-15 06:04] LABS: BASOPHILS ABSOLUTE AUTO 0.05 K/mm3 (0.00-0.23); BASOPHILS PERCENT AUTO 0 % (0-2); EOSINOPHILS ABSOLUTE AUTO 0.01 K/mm3 (0.00-0.68); EOSINOPHILS PERCENT AUTO 0 % (0-6); Hematocrit 23.2 % (33.0-51.0); Hemoglobin 7.3 g/dL (11.5-16.0); IMMATURE GRAN ABSOLUTE AUTO 0.14 K/mm3 (0.00-0.10); IMMATURE GRAN PERCENT AUTO 1 % (0-1); LYMPHOCYTES ABSOLUTE AUTO 1.65 K/mm3 (0.84-5.20); LYMPHOCYTES PERCENT AUTO 10 % (21-46); MONOCYTES ABSOLUTE AUTO 0.97 K/mm3 (0.16-1.47); MONOCYTES PERCENT AUTO 6 % (4-13); Mean Corpuscular HGB 26.1 pg (26.0-34.0); Mean Corpuscular HGB Conc 31.5 g/dL (31.5-36.5); Mean Corpuscular Volume 83 fL (80-100); Mean Platelet Volume 11.1 fL (9.1-12.4); NEUTROPHILS ABSOLUTE AUTO 13.25 K/mm3 (1.96-9.15); NEUTROPHILS PERCENT AUTO 82 % (41-73); Platelet Count 177 K/mm3 (150-400); RDW Coefficient Variation 17.3 % (11.7-14.2); White Blood Cell Count 16.07 K/mm3 (4.00-11.30)
[2020-10-15 06:20] LABS: Albumin, Blood 1.5 g/dL (3.4-5.0); Anion Gap 10 mmol/L (6-16); Blood Urea Nitrogen 70 mg/dL (8-24); Bun/Creatinine Ratio 25.5 (12.0-20.0); CO2, Blood 20 mmol/L (21-32); Calcium, Blood 7.8 mg/dL (8.5-10.1); Chloride, Blood 105 mmol/L (98-108); Creatinine, Blood 2.75 mg/dL (0.40-1.00); Glomerular Filtration Rate 19 (60-); Glucose, Blood 340 mg/dL (70-99); Potassium, Blood 3.8 mmol/L (3.5-5.5); Sodium, Blood 135 mmol/L (136-145)
[2020-10-15] MEDS ORDERED: AMLO5 PO (12:08)
[2020-10-15] MEDS ORDERED: BASAGLAR K100 UNIT/6 SC (12:09)
[2020-10-15] MEDS ORDERED: FURO40 PO (12:09)
[2020-10-15] MEDS ORDERED: HUMALOG KW100 UNIT/1 SC ×2 (12:11→14:33)
[2020-10-15] MEDS ORDERED: AMOCLA875 PO (12:12)
--- NOTE | 2020-10-15 16:06 | NUR ---
DISCHARGE PT DISCHARGED TO HOME. THIS RN EXPLAINED DISCHARGE INSTRUCTIONS AND MEDICATIONS TO PT AND SHE REPORTS SHE UNDERSTANDS. PT HAS BEEN SHOWN/EXPLAINED HOW TO READ WHAT DOSE OF INSULIN IS NEEDED AND HOW TO INJECT. PT HAS DEMONSTRATED MULTIPLE TIMES THE LAST 2 DAYS WITH THIS RN THAT SHE UNDERSTANDS HOW TO READ WHAT DOSE SHE NEEDS PER HER BLOOD SUGAR WITH MEDIUM SLIDING SCALE AND HOW TO USE THE INSULIN PENS WITH INJECTING. HARD SCRIPT GIVEN FOR GLUCOMETER AND STRIPS WITH LANCETS. MEDICATIONS FAXED TO [facility] PER PT REQUEST. PT TRANSFERRED TO PRIVATE VEHICLE VIA WHEELCHAIR. PT'S BELONGINGS WITH PT.
== END 2020-10-15 15:09 | disposition home or self-care (01) | DRG 871 ==
LOC: ER 16:25 → MEDS 20:08 → ICUW 20:08 → ICUE 20:08 → MEDS 10-04 19:17
PROVIDERS: Emergency Medicine; Internal Medicine; Pharmacist; ADMIT Internal Medicine
DX: A41.51 Sepsis due to Escherichia coli [E. coli] (principal); R65.21 Severe sepsis with septic shock; J85.0 Gangrene and necrosis of lung; J18.9 Pneumonia, unspecified organism; N10 Acute pyelonephritis; N17.9 Acute kidney failure, unspecified; E11.65 Type 2 diabetes mellitus with hyperglycemia; K74.60 Unspecified cirrhosis of liver; D25.9 Leiomyoma of uterus, unspecified; D63.8 Anemia in other chronic diseases classified elsewhere; Z20.822 Contact with and (suspected) exposure to COVID-19; R19.7 Diarrhea, unspecified; D86.0 Sarcoidosis of lung; Z98.890 Other specified postprocedural states
CPT/HCPCS: 0241U; 36415; 36430; 51702; 71045; 71250; 74176; 76604; 76770; 78580; 80048; 80053; 80069; 80202; 81001; 82010; 82270; 82550; 82570; 82607; 82728; 82746; 82784; 82803; 82947; 83036; 83520; 83540; 83550; 83605; 83690; 83735; 83880; 83930; 84145; 84156; 84165; 84484; 85014; 85018; 85025; 85027; 86225; 86235; 86256; 86334; 86704; 86708; 86803; 86850; 86900; 86901; 86923; 87040; 87077; 87086; 87186; 87340; 87493; 93005; 93010; 93306; 96365; 96368; 97110; 97116; 97162; 99285-25; A9270; A9540; J0692; J0696; J0881; J1644; J1650; J1815; J1940; J1956; J2060; J2405; J2543; J3370; J3475; J3480; J7030; J7050; J7120; P9016; P9612

== ENCOUNTER 2020-10-29 14:31 | Inpatient (IN) | payer OTHER ==
[~2020-10-29] VITALS: Ht 157.5 cm; Wt 99.6 kg
[~2020-10-29 14:31] MED LIST: AMLO5 PO; AMOCLA875 PO; BASAGLAR K100 UNIT/6 SC; FURO40 PO; HUMALOG KW100 UNIT/1 SC
[2020-10-29 15:51] LABS: BASOPHILS ABSOLUTE AUTO 0.07 K/mm3 (0.00-0.23); BASOPHILS PERCENT AUTO 0 % (0-2); EOSINOPHILS ABSOLUTE AUTO 0.04 K/mm3 (0.00-0.68); EOSINOPHILS PERCENT AUTO 0 % (0-6); Hematocrit 23.3 % (33.0-51.0); IMMATURE GRAN ABSOLUTE AUTO 0.91 K/mm3 (0.00-0.10); IMMATURE GRAN PERCENT AUTO 4 % (0-1); LYMPHOCYTES ABSOLUTE AUTO 1.96 K/mm3 (0.84-5.20); LYMPHOCYTES PERCENT AUTO 10 % (21-46); MONOCYTES ABSOLUTE AUTO 0.85 K/mm3 (0.16-1.47); MONOCYTES PERCENT AUTO 4 % (4-13); Mean Corpuscular HGB 25.3 pg (26.0-34.0); Mean Corpuscular Volume 84 fL (80-100); Mean Platelet Volume 10.3 fL (9.1-12.4); NEUTROPHILS ABSOLUTE AUTO 16.83 K/mm3 (1.96-9.15); NEUTROPHILS PERCENT AUTO 82 % (41-73); Platelet Count 499 K/mm3 (150-400); RDW Coefficient Variation 17.5 % (11.7-14.2); RDW Standard Deviation 54.3 fL (35.1-46.3); Red Blood Cell Count 2.77 M/mm3 (3.80-5.20); White Blood Cell Count 20.66 K/mm3 (4.00-11.30)
[2020-10-29 16:33] LABS: Albumin, Blood 1.9 g/dL (3.4-5.0); Albumin/Globulin Ratio 0.3 (0.8-1.8); Bilirubin, Total 0.4 mg/dL (0.1-1.0); Bun/Creatinine Ratio 20.9 (12.0-20.0); Creatinine, Blood 1.72 mg/dL (0.40-1.00); Globulin, Blood 5.9 g/dL (2.2-4.0); Potassium, Blood 3.9 mmol/L (3.5-5.5); Total Protein, Blood 7.8 g/dL (6.4-8.2)
[2020-10-29] MEDS ORDERED: VISBIOME 112.51 EACH PO (19:01)
[2020-10-30 05:29] LABS: BASOPHILS ABSOLUTE AUTO 0.06 K/mm3 (0.00-0.23); BASOPHILS PERCENT AUTO 0 % (0-2); EOSINOPHILS ABSOLUTE AUTO 0.02 K/mm3 (0.00-0.68); EOSINOPHILS PERCENT AUTO 0 % (0-6); Hematocrit 21.2 % (33.0-51.0); Hemoglobin 6.3 g/dL (11.5-16.0); IMMATURE GRAN ABSOLUTE AUTO 0.62 K/mm3 (0.00-0.10); IMMATURE GRAN PERCENT AUTO 4 % (0-1); LYMPHOCYTES PERCENT AUTO 11 % (21-46); MONOCYTES ABSOLUTE AUTO 0.92 K/mm3 (0.16-1.47); MONOCYTES PERCENT AUTO 6 % (4-13); Mean Corpuscular HGB 25.5 pg (26.0-34.0); Mean Corpuscular HGB Conc 29.7 g/dL (31.5-36.5); Mean Corpuscular Volume 86 fL (80-100); Mean Platelet Volume 10.4 fL (9.1-12.4); NEUTROPHILS ABSOLUTE AUTO 12.42 K/mm3 (1.96-9.15); NEUTROPHILS PERCENT AUTO 78 % (41-73); Platelet Count 372 K/mm3 (150-400); RDW Standard Deviation 55.6 fL (35.1-46.3); Red Blood Cell Count 2.47 M/mm3 (3.80-5.20); White Blood Cell Count 15.84 K/mm3 (4.00-11.30)
[2020-10-30 06:00] LABS: Bun/Creatinine Ratio 21.3 (12.0-20.0); Calcium, Blood 7.9 mg/dL (8.5-10.1); Creatinine, Blood 1.74 mg/dL (0.40-1.00); Potassium, Blood 3.7 mmol/L (3.5-5.5)
[2020-10-30 06:04] LABS: BAND PERCENT MAN 1 % (0-8); BASOPHILS PERCENT MAN 0 % (0-2); EOSINOPHILS PERCENT MAN 0 % (0-6); LYMPHOCYTES PERCENT MAN 7 % (21-46); MONOCYTES ABSOLUTE MAN 0.63 K/mm3 (0.16-1.47); MONOCYTES PERCENT MAN 4 % (4-13); MYELOCYTE ABSOLUTE MAN 0.31 K/mm3 (0.00-0.00); MYELOCYTE PERCENT MAN 2 % (0-0); NEUTROPHILS ABSOLUTE MAN 13.78 K/mm3 (1.96-9.15); SEG NEUTROPHILS PERCENT MAN 86 % (41-73); TOTAL CELLS COUNTED 100
--- NOTE | 2020-10-30 13:30 | NUR ---
Echocardiogram completed.
--- NOTE | 2020-10-30 15:18 | NUR ---
BLOOD TRANSFUSION, PT HGB LESS THAN 7. RECEIVED ORDER OF 1UNIT OF BLOOD. VSS CHECKED PRIOR WNL. DIM LUNG SOUNDS AT BASES. VERIFIED BLOOD WITH ANOTHER RN. PT NO C/O OF SOB OR ANY RX AND WILL CONTINUE TO MONITOR AND RECHECK VS
[2020-10-30 16:12] LABS: C-REACTIVE PROTEIN, EXT RANGE 6.04 mg/dL (0.000-0.300); Percent Saturation 16.4 % (15.0-50.0)
--- NOTE | 2020-10-30 16:51 | NUR ---
SHIFT SUMMARY PT AOX4; CALLS APPROPRIATELY. PT WILL HAVE A BERNY TOMORROW SO NPO AT MIDNIGHT AND PT AWARE. PT RECEIVING 1 UNIT OF BLOOD TODAY; NO RXN, VSS. PT IS INDEPENDENT IN THE ROOM AND NO C/O PAIN. PT WOULD LIKE TO ESTABLISH PCP TO [facility] BEFORE DISCHARGE AND WORRIED ABOUT HER INSULIN MANAGEMENT IF SHE DOES NOT HAVE A PCP. BED IS IN THE LOWEST POSITION AND CALL LIGHT WITHIN REACH
--- NOTE | 2020-10-31 03:34 | NUR ---
SHIFT SUMMARY PATIENT HAD NO ACUTE CHANGES OBSERVED. AXOX 4 AND INDEPENDENT IN ROOM. PIV REMAINS INTACT. HOSPITAL EDUCATION COORDINATOR REPORTS NSR 97. CBG 133. IV ABX INFUSED. NPO FOR BERNY PROCEDURE. DENIES PAIN, SOB, AND N/V. VSS/AFEBRILE. REPORTS SLEEPSIN CHAIR. CALL LIGHT IN REACH. BED IN LOWEST POSITION. WILL CONTINUE TO MONITOR UNTIL DAY SHIFT NURSE ASSUMES CARE.
[2020-10-31 05:25] LABS: BASOPHILS ABSOLUTE AUTO 0.05 K/mm3 (0.00-0.23); BASOPHILS PERCENT AUTO 0 % (0-2); EOSINOPHILS ABSOLUTE AUTO 0.02 K/mm3 (0.00-0.68); EOSINOPHILS PERCENT AUTO 0 % (0-6); Hematocrit 24.4 % (33.0-51.0); Hemoglobin 7.5 g/dL (11.5-16.0); IMMATURE GRAN ABSOLUTE AUTO 0.38 K/mm3 (0.00-0.10); IMMATURE GRAN PERCENT AUTO 3 % (0-1); LYMPHOCYTES ABSOLUTE AUTO 2.07 K/mm3 (0.84-5.20); LYMPHOCYTES PERCENT AUTO 14 % (21-46); MONOCYTES ABSOLUTE AUTO 0.94 K/mm3 (0.16-1.47); MONOCYTES PERCENT AUTO 6 % (4-13); Mean Corpuscular HGB 26.1 pg (26.0-34.0); Mean Corpuscular HGB Conc 30.7 g/dL (31.5-36.5); Mean Corpuscular Volume 85 fL (80-100); Mean Platelet Volume 10.2 fL (9.1-12.4); NEUTROPHILS ABSOLUTE AUTO 11.71 K/mm3 (1.96-9.15); NEUTROPHILS PERCENT AUTO 77 % (41-73); Platelet Count 399 K/mm3 (150-400); RDW Coefficient Variation 17.4 % (11.7-14.2); Red Blood Cell Count 2.87 M/mm3 (3.80-5.20); White Blood Cell Count 15.17 K/mm3 (4.00-11.30)
[2020-10-31 05:49] LABS: Bun/Creatinine Ratio 21.2 (12.0-20.0); Calcium, Blood 7.9 mg/dL (8.5-10.1); Creatinine, Blood 1.89 mg/dL (0.40-1.00); Potassium, Blood 3.7 mmol/L (3.5-5.5)
[2020-10-31 09:28] LABS: Influenza A, PCR NEGATIVE (NEGATIVE); Influenza B, PCR NEGATIVE (NEGATIVE); Resp Syncytial Virus, PCR NEGATIVE (NEGATIVE); SARS-Cov-2 (COVID-19) PCR, MMC NEGATIVE (NEGATIVE)
--- NOTE | 2020-10-31 11:07 | NUR ---
PT LINDEN BERNY WELL, RESTING NOW IN HC, SEE RYTHMN STRIP RECORD FOR PROCEDURE VITALS, WILL RETURN TO ROOM WHEN PT MORE AWAKE
--- NOTE | 2020-10-31 18:46 | NUR ---
PT REMAINS A/O, INDEPENDENT IN THE ROOM. IV ABX CHANGED PER DR HDZ. BERNY COMPLETED, PT TOLERATED WELL. MRI COMPLETED THIS EVENING. NO ACUTE CHANGES NOTED THIS SHIFT, WILL CONTINUE TO MONITOR AND REPORT TO ONCOMING RN.
--- NOTE | 2020-11-01 03:37 | NUR ---
SHIFT SUMMARY PATIENT HAD NO ACUTE CHANGES OBSERVED. AXOX 4 AND INDEPENDENT IN ROOM. PIV REMAINS INTACT. MOLD MACHINE OPERATOR REPORTS NSR 95. CBG 175. DENIES PAIN, SOB, AND N/V. AFEBRILE. MELATONIN 5 MG GIVEN FOR INSOMNIA. PREFERS TO SLEEP IN RECLINER. TAKES MEDICATION WHOLE WITH WATER. CALL LIGHT IN REACH. BED IN LOWEST POSITION. WILL CONTINUE TO MONITOR UNTIL DAY SHIFT NURSE ASSUMES CARE.
[2020-11-01 05:30] LABS: BASOPHILS ABSOLUTE AUTO 0.05 K/mm3 (0.00-0.23); BASOPHILS PERCENT AUTO 0 % (0-2); EOSINOPHILS ABSOLUTE AUTO 0.07 K/mm3 (0.00-0.68); EOSINOPHILS PERCENT AUTO 1 % (0-6); Hematocrit 25.2 % (33.0-51.0); Hemoglobin 7.5 g/dL (11.5-16.0); IMMATURE GRAN ABSOLUTE AUTO 0.35 K/mm3 (0.00-0.10); IMMATURE GRAN PERCENT AUTO 2 % (0-1); LYMPHOCYTES ABSOLUTE AUTO 2.04 K/mm3 (0.84-5.20); LYMPHOCYTES PERCENT AUTO 13 % (21-46); MONOCYTES ABSOLUTE AUTO 1.03 K/mm3 (0.16-1.47); MONOCYTES PERCENT AUTO 7 % (4-13); Mean Corpuscular HGB 25.6 pg (26.0-34.0); Mean Corpuscular HGB Conc 29.8 g/dL (31.5-36.5); Mean Corpuscular Volume 86 fL (80-100); Mean Platelet Volume 10.5 fL (9.1-12.4); NEUTROPHILS ABSOLUTE AUTO 11.72 K/mm3 (1.96-9.15); NEUTROPHILS PERCENT AUTO 77 % (41-73); Platelet Count 409 K/mm3 (150-400); RDW Coefficient Variation 17.6 % (11.7-14.2); RDW Standard Deviation 55.8 fL (35.1-46.3); Red Blood Cell Count 2.93 M/mm3 (3.80-5.20); White Blood Cell Count 15.26 K/mm3 (4.00-11.30)
[2020-11-01 06:27] LABS: Bun/Creatinine Ratio 4.9 (12.0-20.0); Creatinine, Blood 1.82 mg/dL (0.40-1.00); Potassium, Blood 3.9 mmol/L (3.5-5.5)
--- NOTE | 2020-11-01 10:22 | NUR ---
Extra small, hard BM, one pellet. [place] urine, less than one ounce.
--- NOTE | 2020-11-01 13:52 | NUR ---
Initial meeting with pt today; she is up in the recliner chair, which she says she also sleeps in for comfort. This pt was recently diagnosed as a type 2 diabetic, and acute on chronich renal failure. She hadn't had a PCP for over 20 years, when she presented to the ED in September with N/V and weakness, and was diagnosed with Type 2 DM, necrotizing pneumonia, acute renal failure, pyelonephritis and septic shock. Upon discharge, she attempted to make an appt with her new PCP at [place], but unfortunately they were 3 weeks out and she ended up running out of the week's supply of antibiotics and insulin the hospitalist had prescrived during last admission. By the time she got to her appt with Dr. Jennings, Dr. Jennings sent her back to the hospital with high wihite blood cells and out of control blood sugar readings. The plan is to return her home when discharged, with a d/c plan and follow up with new PCP's sooner.
[2020-11-01 14:09] LABS: C DIFFICILE DNA NEGATIVE (Negative)
--- NOTE | 2020-11-01 18:37 | NUR ---
PT REPORTING DIARRHEA TODAY, STOOL FOR C-DIFF SENT, RESULTS ARE NEGATIVE. SHE CONTINUES TO SLEEP IN RECLINER, NO ACUTE CHANGES NOTED THIS SHIFT, WILL CONTINUE TO MONITOR AND REPORT TO ONCOMING RN
--- NOTE | 2020-11-02 05:24 | NUR ---
SHIFT SUMMARY ASSUMED CARE OF PT AT 1900. PT IS A/OX4. HEART SOUNDS HAVE MURMUR, TLELE SHOWS SINUS. LUNG SOUNDS ARE CLEAR. PT INDEPENDENT TO BATHROOM. NO ACUTE EVENTS. CALL LIGHT IN REACH, BED IN LOWEST POSITION.
[2020-11-02 05:56] LABS: BASOPHILS ABSOLUTE AUTO 0.08 K/mm3 (0.00-0.23); BASOPHILS PERCENT AUTO 1 % (0-2); EOSINOPHILS ABSOLUTE AUTO 0.03 K/mm3 (0.00-0.68); EOSINOPHILS PERCENT AUTO 0 % (0-6); Hematocrit 25.3 % (33.0-51.0); Hemoglobin 7.7 g/dL (11.5-16.0); IMMATURE GRAN ABSOLUTE AUTO 0.27 K/mm3 (0.00-0.10); IMMATURE GRAN PERCENT AUTO 2 % (0-1); LYMPHOCYTES ABSOLUTE AUTO 2.39 K/mm3 (0.84-5.20); LYMPHOCYTES PERCENT AUTO 15 % (21-46); MONOCYTES ABSOLUTE AUTO 0.95 K/mm3 (0.16-1.47); MONOCYTES PERCENT AUTO 6 % (4-13); Mean Corpuscular HGB Conc 30.4 g/dL (31.5-36.5); Mean Corpuscular Volume 86 fL (80-100); Mean Platelet Volume 10.1 fL (9.1-12.4); NEUTROPHILS ABSOLUTE AUTO 12.14 K/mm3 (1.96-9.15); NEUTROPHILS PERCENT AUTO 77 % (41-73); Platelet Count 390 K/mm3 (150-400); RDW Coefficient Variation 17.4 % (11.7-14.2); RDW Standard Deviation 54.1 fL (35.1-46.3); Red Blood Cell Count 2.96 M/mm3 (3.80-5.20); White Blood Cell Count 15.86 K/mm3 (4.00-11.30)
[2020-11-02 06:10] LABS: Bun/Creatinine Ratio 20.5 (12.0-20.0); Calcium, Blood 8.2 mg/dL (8.5-10.1); Creatinine, Blood 1.9 mg/dL (0.40-1.00); Potassium, Blood 4.1 mmol/L (3.5-5.5)
--- NOTE | 2020-11-02 17:45 | NUR ---
CALLED DR FISH ABOUT PT'S LIQUID BROWN BMS, 10 BMS SINCE 7AM. NEGATIVE CDIF TEST YESTERDAY, ALREADY ON PROBIOTIC, SHE ORDERED IMMODIUM
--- NOTE | 2020-11-02 18:25 | NUR ---
SHIFT SUMMARY NETO UP INDEPENDENTLY IN THE ROOM. HAD 10-15 LIQUID BM THIS SHIFT PER PT, LIQUID AND BROWN (A FEW SEEN BY THIS RN, VERY LIQUID). CDIF NEG YESTERDAY, STARTED IMMODIUM. NIECE VISITED. CBGS WNL. GOT TYLENOL FOR HEADACHE. FEELS SOB WITH EXERTION. DECLINED TO WALK IN [place] TODAY DUE TO LOOSE BMS. CALL LIGHT IN REACH, [facility]
--- NOTE | 2020-11-03 05:02 | NUR ---
SHIFT SUMMARY ASSUMED CARE OF PT AT 1900. PT IS A/OX4. HEART SOUNDS REGULAR, LUNG SOUNDS DIMINISHED. PT INDEPENDENT IN ROOM. PT C/O DIARRHEA, IMODIUM GIVEN AND PT STATES THAT IT HELPED DURING THE NIGHT. NO ACUTE EVENTS DURING THE NIGHT. PT SLEPT T/O THE NIGHT. CALL LIGHT IN REACH, BED IN LOWEST POSTION.
[2020-11-03 05:28] LABS: Hematocrit 23.3 % (33.0-51.0); Hemoglobin 7.1 g/dL (11.5-16.0); Mean Corpuscular HGB 26.1 pg (26.0-34.0); Mean Corpuscular HGB Conc 30.5 g/dL (31.5-36.5); Mean Corpuscular Volume 86 fL (80-100); Mean Platelet Volume 10.2 fL (9.1-12.4); Platelet Count 341 K/mm3 (150-400); RDW Coefficient Variation 17.6 % (11.7-14.2); RDW Standard Deviation 54.5 fL (35.1-46.3); Red Blood Cell Count 2.72 M/mm3 (3.80-5.20); White Blood Cell Count 14.43 K/mm3 (4.00-11.30)
[2020-11-03 05:55] LABS: Albumin, Blood 1.8 g/dL (3.4-5.0); Albumin/Globulin Ratio 0.3 (0.8-1.8); Bilirubin, Total 0.4 mg/dL (0.1-1.0); Bun/Creatinine Ratio 19.6 (12.0-20.0); C-REACTIVE PROTEIN, EXT RANGE 2.92 mg/dL (0.000-0.300); Creatinine, Blood 2.19 mg/dL (0.40-1.00); Globulin, Blood 5.6 g/dL (2.2-4.0); Potassium, Blood 4.2 mmol/L (3.5-5.5); Total Protein, Blood 7.4 g/dL (6.4-8.2)
--- NOTE | 2020-11-03 17:18 | NUR ---
PT DEVELOPED BRIGHT RED CHEEKS WITH BLOOD ADMINISTRATION. VS STABLE, TEMP ONLY 98.5, TOTALLY ASYMPTOMATIC. CALLED DR FISH, SHE WANTS US TO CONTINUE BLOOD TRANSFUSION WITH CLOSE MONITORING AND GIVE IV BENADRYL 25MG. WCTM
--- NOTE | 2020-11-03 18:34 | NUR ---
SHIFT SUMMARY NETO WAS INDEP TO BATHROOM AND BSC THIS SHIFT. SLIGHT GEE, GOT TYLENOL. RECEIVED 1 UNIT PRBC, FACE GOT VERY RED. (SEE PRIOR NOTE), ASYMPTOMATIC, VSS, BLOOD CONTINUED. AT END OF BLOOD TRANSFUSION, SLIGHT TEMP OF 100.4, BUT WHEN RETAKEN ORALLY, IT WAS 98.6. PT STILL ASYMPTOMATIC, STILL RED CHEEKS. IV BENADRYL ORDERED BY PROVIDER MAKING PT VERY SLEEPY BUT EASILY ROUSABLE. DIARRHEA MUCH BETTER THIS SHIFT, IMMODIUM VERY HELPFUL. MIVF RUNNING. CALL LIGHT IN REACH, WCTM
--- NOTE | 2020-11-04 04:35 | NUR ---
SHIFT SUMMARY ASSUMED CARE OF PT AT 1900. PT IS A/OX4. HEART SOUNDS REGULAR, LUNG SOUNDS DIMINISHED. PT CHEEKS ARE VERY PINK, DAYSHIFT NURSE SAID THIS STARTED WHEN PT RECEIVED BLOOD. PT DENIES ANY NEW SYMPTOMS BUT IS VERY TIRED DUE TO DOSE OF BENYDRYL. PT REPORTS HAVING LESS BOWEL MOVEMENTS THAN YESTERDAY DUE TO IMODIUM. PT IS INDEPENDENT TO BATHROOM. PT RECEIVED A POWERGLIDE THIS SHIFT DUE TO INFLITRATED IV. THE FIRST ATTEMPT AT THE POWERGLIDE FAILED AND THE CHARGE NURSE WHO PUT IN THE LINE FELT THAT PART OF THE LINE MIGHT BE IN THE PATIENT BECAUSE THE MECHANISM LOOKED DIFFERENT THAN NORMAL. DOCTOR ORDERED CHEST XRAY/ PART OF THE ARM TO MAKE SURE THERE WAS NOTHING INSIDE. CXR WAS NEGATIVE AND PT REPORTS FEELING FINE. CALL LIGHT IN REACH, BED IN LOWEST POSTION.
[2020-11-04 05:25] LABS: BASOPHILS ABSOLUTE AUTO 0.07 K/mm3 (0.00-0.23); BASOPHILS PERCENT AUTO 0 % (0-2); EOSINOPHILS ABSOLUTE AUTO 0.27 K/mm3 (0.00-0.68); EOSINOPHILS PERCENT AUTO 2 % (0-6); Hematocrit 25.5 % (33.0-51.0); Hemoglobin 7.9 g/dL (11.5-16.0); IMMATURE GRAN PERCENT AUTO 2 % (0-1); LYMPHOCYTES PERCENT AUTO 14 % (21-46); MONOCYTES PERCENT AUTO 7 % (4-13); Mean Corpuscular HGB 26.4 pg (26.0-34.0); Mean Corpuscular Volume 85 fL (80-100); NEUTROPHILS ABSOLUTE AUTO 12.15 K/mm3 (1.96-9.15); NEUTROPHILS PERCENT AUTO 75 % (41-73); Platelet Count 358 K/mm3 (150-400); RDW Coefficient Variation 17.5 % (11.7-14.2); RDW Standard Deviation 53.6 fL (35.1-46.3); Red Blood Cell Count 2.99 M/mm3 (3.80-5.20); White Blood Cell Count 16.19 K/mm3 (4.00-11.30)
[2020-11-04 05:51] LABS: Albumin/Globulin Ratio 0.3 (0.8-1.8); Bilirubin, Total 0.4 mg/dL (0.1-1.0); Bun/Creatinine Ratio 27.1 (12.0-20.0); Calcium, Blood 8.1 mg/dL (8.5-10.1); Creatinine, Blood 1.77 mg/dL (0.40-1.00); Globulin, Blood 5.8 g/dL (2.2-4.0); Total Protein, Blood 7.8 g/dL (6.4-8.2)
--- NOTE | 2020-11-04 08:00 | NUR ---
pt sitting up in a chair eating breakfast, awake a/ox3, pleasant and cooperative with care, follows commands well, denies pain at this time, lungs are clear in upper roman, dim course in bases, resp even and unlabord, on r/a at this time, hrr, no edema noted, ppp+2, cap refill <3sec, vs stable, afebrile, iv is power glide to [place], site is clear and patent, btx4, abd flat soft nontender, voids without diff, skin c/w/d, maew, yamilet call light in reach.
--- NOTE | 2020-11-04 15:30 | NUR ---
recieved order for consult for Dr. Collins, this was called in for kidney abcess. pt doing ok, denies needs when checked on her. call light in reach.
--- NOTE | 2020-11-04 18:44 | NUR ---
pt had a visitor, no acute changes or needs, PA came to see her, will do procedure for drain tomorrow afternoon, may have breakfast then npo, she is aware, call light in reach.
--- NOTE | 2020-11-05 04:14 | NUR ---
CAREER INFORMATION SPECIALIST SUMMARY A/OX4, PLEASANT AND COOPERATIVE WITH CARE. IND IN ROOM. DENIES PAIN OR SOB. NPO AFTER BREAKFAST TODAY. VSS, NO ACUTE CHANGES AT THIS TIME. BED IN LOWEST POSITION WITH CALL LIGHT IN REACH. WILL CONTINUE TO MONITOR AND REPORT TO ONCOMING RN.
[2020-11-05 05:06] LABS: BASOPHILS ABSOLUTE AUTO 0.07 K/mm3 (0.00-0.23); BASOPHILS PERCENT AUTO 1 % (0-2); EOSINOPHILS ABSOLUTE AUTO 0.15 K/mm3 (0.00-0.68); EOSINOPHILS PERCENT AUTO 1 % (0-6); Hematocrit 24.8 % (33.0-51.0); Hemoglobin 7.6 g/dL (11.5-16.0); IMMATURE GRAN ABSOLUTE AUTO 0.15 K/mm3 (0.00-0.10); IMMATURE GRAN PERCENT AUTO 1 % (0-1); LYMPHOCYTES ABSOLUTE AUTO 1.86 K/mm3 (0.84-5.20); LYMPHOCYTES PERCENT AUTO 15 % (21-46); MONOCYTES ABSOLUTE AUTO 0.95 K/mm3 (0.16-1.47); MONOCYTES PERCENT AUTO 7 % (4-13); Mean Corpuscular HGB 26.7 pg (26.0-34.0); Mean Corpuscular HGB Conc 30.6 g/dL (31.5-36.5); Mean Corpuscular Volume 87 fL (80-100); Mean Platelet Volume 10.3 fL (9.1-12.4); NEUTROPHILS ABSOLUTE AUTO 9.68 K/mm3 (1.96-9.15); NEUTROPHILS PERCENT AUTO 75 % (41-73); Platelet Count 342 K/mm3 (150-400); RDW Coefficient Variation 17.9 % (11.7-14.2); RDW Standard Deviation 56.4 fL (35.1-46.3); Red Blood Cell Count 2.85 M/mm3 (3.80-5.20); White Blood Cell Count 12.86 K/mm3 (4.00-11.30)
[2020-11-05 05:31] LABS: Albumin, Blood 1.9 g/dL (3.4-5.0); Albumin/Globulin Ratio 0.3 (0.8-1.8); Bilirubin, Total 0.4 mg/dL (0.1-1.0); Bun/Creatinine Ratio 26.4 (12.0-20.0); Calcium, Blood 8.2 mg/dL (8.5-10.1); Creatinine, Blood 1.78 mg/dL (0.40-1.00); Globulin, Blood 5.6 g/dL (2.2-4.0); Potassium, Blood 4.1 mmol/L (3.5-5.5); Total Protein, Blood 7.5 g/dL (6.4-8.2)
[2020-11-05 15:35] LABS: International Normalized Ratio 1.06; Prothrombin Time Results 11.4 Sec (9.7-11.5)
--- NOTE | 2020-11-05 16:33 | NUR ---
PT OFF UNIT AT [address] GUIDED RENAL BIOPY AND ABSCESS DRAIN. ALPRAZOLAM 1 MG GIVEN PO PER DR. MORGAN'S VERBAL ORDER. CBG NOT CHECKED. PT TRANSFERRED TO [facility].
--- NOTE | 2020-11-05 17:18 | NUR ---
PATIENT RETURNED FROM PROCEDURE AT 1712. R NEPHROSTOMY DRAIN IN PLACE WITH SANGUINOUS DRAINAGE.
--- NOTE | 2020-11-05 18:09 | NUR ---
SHIFT SUMMARY: AFTER PT RETURNED FROM PROCEDURE, CBG WAS 59; PT ASYMPTOMATIC, GIVEN APPLE JUICE 8 OZ, AND WAS EATING FRESH RASPBERRIES, DINNER WAS ON THE WAY. C/O 8/10 PAIN IN R FLANK AFTER PROCEDURE; MEDICATED WITH TYLENOL. NEPHROSTOMY TUBE WITH SS DRAINAGE IN TUBE, NONE IN DRAIN BAG YET. INDEPENDENT IN ROOM.
--- NOTE | 2020-11-06 06:45 | NUR ---
SHIFT SUMMARY NO ACUTE CHANGES THIS SHIFT. AOX4. VSS. REPORTED R FLANK PAIN, STATED RELIEF c TYLENOL. URESIL DRAIN TO R FLANK, DRESSING C/D/I, PATENT, DRAINING CLEAR CRANBERRY COLORED OUTPUT. HELD HS INSULIN SINCE CBG <100. CALL LIGHT IN REACH & PT ABLE TO MAKE NEEDS KNOWN.
[2020-11-06 06:59] LABS: BASOPHILS ABSOLUTE AUTO 0.05 K/mm3 (0.00-0.23); BASOPHILS PERCENT AUTO 0 % (0-2); EOSINOPHILS ABSOLUTE AUTO 0.07 K/mm3 (0.00-0.68); EOSINOPHILS PERCENT AUTO 0 % (0-6); Hematocrit 27.4 % (33.0-51.0); Hemoglobin 8.3 g/dL (11.5-16.0); IMMATURE GRAN ABSOLUTE AUTO 0.12 K/mm3 (0.00-0.10); IMMATURE GRAN PERCENT AUTO 1 % (0-1); LYMPHOCYTES ABSOLUTE AUTO 1.51 K/mm3 (0.84-5.20); LYMPHOCYTES PERCENT AUTO 9 % (21-46); MONOCYTES ABSOLUTE AUTO 1.02 K/mm3 (0.16-1.47); MONOCYTES PERCENT AUTO 6 % (4-13); Mean Corpuscular HGB 26.6 pg (26.0-34.0); Mean Corpuscular HGB Conc 30.3 g/dL (31.5-36.5); Mean Corpuscular Volume 88 fL (80-100); Mean Platelet Volume 9.8 fL (9.1-12.4); NEUTROPHILS ABSOLUTE AUTO 14.41 K/mm3 (1.96-9.15); NEUTROPHILS PERCENT AUTO 84 % (41-73); Platelet Count 362 K/mm3 (150-400); RDW Coefficient Variation 18.6 % (11.7-14.2); RDW Standard Deviation 58.5 fL (35.1-46.3); Red Blood Cell Count 3.12 M/mm3 (3.80-5.20); White Blood Cell Count 17.18 K/mm3 (4.00-11.30)
[2020-11-06 07:21] LABS: Albumin, Blood 2.1 g/dL (3.4-5.0); Albumin/Globulin Ratio 0.3 (0.8-1.8); Bilirubin, Total 0.4 mg/dL (0.1-1.0); Calcium, Blood 8.5 mg/dL (8.5-10.1); Creatinine, Blood 1.74 mg/dL (0.40-1.00); Globulin, Blood 6.2 g/dL (2.2-4.0); Potassium, Blood 4.6 mmol/L (3.5-5.5); Total Protein, Blood 8.3 g/dL (6.4-8.2)
--- NOTE | 2020-11-06 19:33 | NUR ---
SHIFT SUMMARY: NO ACUTE EVENTS. C/O R FLANK DISCOMFORT, RELIEVED BY TYLENOL. PERINEPHRIC DRAIN WITH 40 ML OUT AT END OF SHIFT, LIGHT PINK; INSERTION SITE WNL, DRESSING INTACT. CBG AB WAS 96; PATIENT REQUESTED TO RECEIVE 15 UNITS OF SEMGLEE INSTEAD OF 30 UNITS ORDERED. CBG WAS 141 AND 111 FOR LUNCH AND DINNER, MAY BENEFIT FROM DOSE REDUCTION GOING FORWARD. APPETITE IS GOOD, EATING MOST OF HER MEALS. INDEPENDENT IN ROOM.
--- NOTE | 2020-11-06 19:41 | NUR ---
PT GAVE THIS STUDENT NURSE PERMISSION TO PROVIDE CARE ON 11/06/20
--- NOTE | 2020-11-07 04:15 | NUR ---
SHIFT SUMMARY NO ACUTE CHANGES THIS SHIFT. GAVE 15U OF INSULIN CBG-143. PT REPORTED R FLANK PAIN RELIEVED BY TYLEMOL PER SEP. PERINEPHRIC DRAIN; LIGHT PINK DRAINAGE. INSERTION SITE WNL; DRESSING C/D/I. PATIENT BED IN LOWEST POSITION, CALL LIGHT WITHIN REACH, PT ABLE TO MAKE NEEDS KNOWN. WILL CONTINUE TO MONITOR.
[2020-11-07 05:34] LABS: BASOPHILS ABSOLUTE AUTO 0.04 K/mm3 (0.00-0.23); BASOPHILS PERCENT AUTO 0 % (0-2); EOSINOPHILS ABSOLUTE AUTO 0.15 K/mm3 (0.00-0.68); EOSINOPHILS PERCENT AUTO 1 % (0-6); Hematocrit 24.8 % (33.0-51.0); Hemoglobin 7.7 g/dL (11.5-16.0); IMMATURE GRAN PERCENT AUTO 1 % (0-1); LYMPHOCYTES ABSOLUTE AUTO 1.62 K/mm3 (0.84-5.20); LYMPHOCYTES PERCENT AUTO 11 % (21-46); MONOCYTES ABSOLUTE AUTO 1.05 K/mm3 (0.16-1.47); MONOCYTES PERCENT AUTO 7 % (4-13); Mean Corpuscular HGB 26.7 pg (26.0-34.0); Mean Corpuscular Volume 86 fL (80-100); Mean Platelet Volume 10.2 fL (9.1-12.4); NEUTROPHILS ABSOLUTE AUTO 11.25 K/mm3 (1.96-9.15); NEUTROPHILS PERCENT AUTO 79 % (41-73); Platelet Count 305 K/mm3 (150-400); RDW Coefficient Variation 18.5 % (11.7-14.2); RDW Standard Deviation 58.3 fL (35.1-46.3); Red Blood Cell Count 2.88 M/mm3 (3.80-5.20); White Blood Cell Count 14.21 K/mm3 (4.00-11.30)
[2020-11-07 06:07] LABS: Albumin, Blood 1.9 g/dL (3.4-5.0); Albumin/Globulin Ratio 0.3 (0.8-1.8); Bilirubin, Total 0.4 mg/dL (0.1-1.0); Bun/Creatinine Ratio 25.4 (12.0-20.0); Calcium, Blood 8.3 mg/dL (8.5-10.1); Creatinine, Blood 1.77 mg/dL (0.40-1.00); Potassium, Blood 4.3 mmol/L (3.5-5.5); Total Protein, Blood 7.9 g/dL (6.4-8.2)
--- NOTE | 2020-11-07 17:01 | NUR ---
SHIFT SUMMARY PT IS ABLE TO MAKE NEEDS KNOWN. A&OX4. SHE HAS BEEN IN THE CHAIR FOR MOST OF THE SHIFT BUT IS INDEPENDENT AND ABLE TO GET UP TO USE THE BATHROOM OR COMODE. POWERGLIDE WAS HARD TO FLUSH AND NOT DRAWING BLOOD, CHANGED DRESSING IS CURENTLY FLUSHING BETTER. NO ACUTE CHANGES TO REPORT THIS SHIFT. DENIES P/N/V. PT WAITING FOR DINNER TRAYS TO ARRIVE.
--- NOTE | 2020-11-07 20:48 | NUR ---
PT GAVE THIS STUDENT NURSE PERMISSION TO PROVIDE CARE ON 11/07/20
[2020-11-08 05:17] LABS: BASOPHILS ABSOLUTE AUTO 0.03 K/mm3 (0.00-0.23); BASOPHILS PERCENT AUTO 0 % (0-2); EOSINOPHILS ABSOLUTE AUTO 0.21 K/mm3 (0.00-0.68); EOSINOPHILS PERCENT AUTO 2 % (0-6); Hematocrit 24.9 % (33.0-51.0); Hemoglobin 7.7 g/dL (11.5-16.0); IMMATURE GRAN ABSOLUTE AUTO 0.05 K/mm3 (0.00-0.10); IMMATURE GRAN PERCENT AUTO 1 % (0-1); LYMPHOCYTES ABSOLUTE AUTO 1.63 K/mm3 (0.84-5.20); LYMPHOCYTES PERCENT AUTO 16 % (21-46); MONOCYTES ABSOLUTE AUTO 0.81 K/mm3 (0.16-1.47); MONOCYTES PERCENT AUTO 8 % (4-13); Mean Corpuscular HGB 26.8 pg (26.0-34.0); Mean Corpuscular HGB Conc 30.9 g/dL (31.5-36.5); Mean Corpuscular Volume 87 fL (80-100); NEUTROPHILS PERCENT AUTO 73 % (41-73); Platelet Count 317 K/mm3 (150-400); RDW Coefficient Variation 18.3 % (11.7-14.2); RDW Standard Deviation 58.5 fL (35.1-46.3); Red Blood Cell Count 2.87 M/mm3 (3.80-5.20); White Blood Cell Count 10.23 K/mm3 (4.00-11.30)
--- NOTE | 2020-11-08 05:43 | NUR ---
PT PLEASANT & COOPERATIVE TO CARE. POSITIVE MOOD & EAGER TO D/C TO HOME. INDEPENDENT IN ROOM; PT TOOK A SHOWER. POWERGLIDE FLUSHED BUT UNABLE TO DRAW LAB FROM THIS AM. NO ACUTE CHANGES THIS SHIFT. PT SLEPT IN CHAIR WITH CALL LIGHT WITHIN REACH. WILL CONTINUE TO MONITOR UNTI LREPORT TO ONCOMING NURSE
[2020-11-08 05:48] LABS: Albumin/Globulin Ratio 0.3 (0.8-1.8); Bilirubin, Total 0.3 mg/dL (0.1-1.0); Bun/Creatinine Ratio 26.6 (12.0-20.0); Calcium, Blood 8.5 mg/dL (8.5-10.1); Creatinine, Blood 1.73 mg/dL (0.40-1.00); Potassium, Blood 4.3 mmol/L (3.5-5.5)
--- NOTE | 2020-11-08 17:34 | NUR ---
SHIFT SUMMARY PT AOX4; INDEPENDENT IN THE ROOM. PT DENIES PAIN OR DISCOMFORT. PT TUBE DRAINING ON R FLANK HAS VERY MINIMAL AMOUNT. PT WILL HAVE A CT SCAN ON WEDNESDAY PER DR FISH AND CONSULT FOR DR MORGAN FOR THE ABSCESS. BED IS IN THE LOWEST POSITION AND CALL LIGHT WITHIN REACH
--- NOTE | 2020-11-09 03:40 | NUR ---
SHIFT SUMMARY PATIENT HAD NO ACUTE CHANGES OBSERVED. AXOX 4 AND INDEPENDENT IN ROOM. PERINEPHRIC DRAIN RS INTACT. CBG 185. POWERGLIDE TERESO INTACT. VSS/AFEBRILE. DENIES PAIN, SOB, AND N/V. COOPERATIVE WITH CARE. CALL LIGHT IN REACH. BED IN LOWEST POSITION. WILL CONTINUE TO MONITOR UNTIL DAY SHIFT NURSE ASSUMES CARE.
--- NOTE | 2020-11-09 18:20 | NUR ---
SHIFT SUMMARY PT AxOx4. PLEASANT AND COOPERATIVE WITH CARE. INDEPENDENT IN THE ROOM. REPORTS BACK/KIDNEY SORENESS THIS AM. MEDICATED PER EMAR. OTHERWISE UNEVENTFUL SHIFT. PT HAD VISITOR TODAY. PLAN FOR UPDATE CT SCAN ON WEDNESDAY, THEN DISCUSS POSSIBLE DC. VITALS REVIEWED. PT CURRENTLY RESTING IN CHAIR WITH CALL LIGHT IN REACH. DENIES ANY NEEDS AT THIS TIME.
--- NOTE | 2020-11-10 03:47 | NUR ---
SHIFT SUMMARY PATIENT HAD NO ACUTE CHANGES OBSERVED. AXOX 4 AND INDEPENDENT IN THE ROOM. DENIES PAIN, SOB, AND N/V. PERINEPHRIC DRAIN RS BACK INTACT. CBG 201. POWERGLIDE TERESO INTACT. VSS/AFEBRILE. COOPERATIVE WITH CARE. CALL LIGHT IN REACH. BED IN LOWEST POSITION. WILL CONTINUE TO MONITOR UNTIL DAY SHIFT NURSE ASSUMES CARE.
[2020-11-10 06:03] LABS: Hematocrit 25.9 % (33.0-51.0); Hemoglobin 7.9 g/dL (11.5-16.0); Mean Corpuscular HGB Conc 30.5 g/dL (31.5-36.5); Mean Corpuscular Volume 88 fL (80-100); Mean Platelet Volume 10.2 fL (9.1-12.4); Platelet Count 300 K/mm3 (150-400); RDW Coefficient Variation 18.1 % (11.7-14.2); RDW Standard Deviation 57.7 fL (35.1-46.3); Red Blood Cell Count 2.93 M/mm3 (3.80-5.20); White Blood Cell Count 8.84 K/mm3 (4.00-11.30)
[2020-11-10 06:24] LABS: Bun/Creatinine Ratio 21.8 (12.0-20.0); Calcium, Blood 8.2 mg/dL (8.5-10.1); Creatinine, Blood 1.79 mg/dL (0.40-1.00); Potassium, Blood 4.3 mmol/L (3.5-5.5)
--- NOTE | 2020-11-10 16:34 | NUR ---
SHIFT SUMMARY NO ACUTE CHANGES, A&Ox4, CALM AND COOPERATIVE c CARE. INDEPENDENT IN ROOM. DENIES ANY DISTRESS T/O SHIFT. ACCORDIAN DRAIN TO R FLANK CONTINUES TO DRAIN. SITE AND DRAINAGE APPEARS WNL. REPEAT CT TOMORROW TO DETERMINE PLAN OF CARE. PT IS CURRENTLY RESTING IN RECLINER c CALL LIGHT WITHIN REACH, CALLS APPROPRIATELY. PG FLUSHES WELL.
--- NOTE | 2020-11-11 04:56 | NUR ---
SHIFT SUMMARY NO ACUTE CHANGES THIS SHIFT. AOX4. VSS. REPORTS 01/02 DULL CONSTANT R FLANK PAIN, MEDICATED c TYLENOL 1X, STATES RELIEF. URESIL DRAIN PATENT & DRAINING CLOUDY, MILKY RKAFT COLORED DRAINAGE. IND IN RM. CBG @ 150-NO COVERAGE PER ORDERS. PLAN TO HAVE CT TODAY. CALL LIGHT IN REACH & PT ABLE TO MAKE NEEDS KNOWN.
--- NOTE | 2020-11-11 17:12 | NUR ---
SHIFT SUMMARY NO ACUTE CHANGES T/O SHIFT, A&Ox4, CALM AND COOPERATIVE c CARE. PT REPORTS SOME PAIN 5/10 AND DISCOMFORT OF THE R FLANK T/O SHIFT, TREAT PER EMAR x2, PT STATES SOME RELIEF. CT COMPLETED TODAY. PROVIDER HAS NOT BEEN BY SINCE THIS AM TO DISCUSS RESULTS c PT. BP THIS AFTERNOON WAS 175/96. GAVE PT PRN HYDRALAZINE 10 MG IV, BP REASSESSED AND BP WAS 143/88. NORVASC 5 MG PO CHANGED TO BID. NO INSULIN COVERAGE NEEDED T/P SHIFT. ACCORDIAN DRAIN PATENT AND DRAINING, MILKY TANISH/GAYLE FLUID. SITE APPEARS WNL. PT IS RESTING QUIETLY IN BED WITH CALL LIGHT WITHIN REACH. CALLS APPROPRIATELY, INDEPENDENT IN ROOM.
--- NOTE | 2020-11-11 18:30 | NUR ---
Visit made with pt today; she states feeling down. She has been in the hospital for quite some time this visit, when it was determined that she had an abcess on her kidney. She currently has a drain to the R kidney; she states it's not painful at this time. Plan to see pt again tomorrow, attempt to assist with positive affirmations.
--- NOTE | 2020-11-12 05:08 | NUR ---
SHIFT SUMMARY NO ACUTE CHANGES THIS SHIFT. AOX4. VSS. REPORTS 02/01 PAIN R FLANK, MEDICATED 1X c TYLENOL, STATED RELIEF. REPLACED R FLANK URESIL DRAIN BAG, PREVIOUS DRAIN WAS NOT EXPANDING & WANTED TO MAKE SURE IT WAS PATENT. ONLY SMALL AMOUNT MILKY LAUREANO/KRAFT DRAINAGE-ROUGHLY 20ML THIS SHIFT. CALL LIGHT IN REACH & PT ABLE TO MAKE NEEDS KNOWN.
[2020-11-12 05:27] LABS: BASOPHILS ABSOLUTE AUTO 0.04 K/mm3 (0.00-0.23); BASOPHILS PERCENT AUTO 1 % (0-2); EOSINOPHILS ABSOLUTE AUTO 0.31 K/mm3 (0.00-0.68); EOSINOPHILS PERCENT AUTO 4 % (0-6); Hematocrit 25.9 % (33.0-51.0); Hemoglobin 7.9 g/dL (11.5-16.0); IMMATURE GRAN ABSOLUTE AUTO 0.04 K/mm3 (0.00-0.10); IMMATURE GRAN PERCENT AUTO 1 % (0-1); LYMPHOCYTES ABSOLUTE AUTO 1.44 K/mm3 (0.84-5.20); LYMPHOCYTES PERCENT AUTO 17 % (21-46); MONOCYTES ABSOLUTE AUTO 0.59 K/mm3 (0.16-1.47); MONOCYTES PERCENT AUTO 7 % (4-13); Mean Corpuscular HGB 26.6 pg (26.0-34.0); Mean Corpuscular HGB Conc 30.5 g/dL (31.5-36.5); Mean Corpuscular Volume 87 fL (80-100); Mean Platelet Volume 10.2 fL (9.1-12.4); NEUTROPHILS ABSOLUTE AUTO 5.91 K/mm3 (1.96-9.15); NEUTROPHILS PERCENT AUTO 71 % (41-73); Platelet Count 317 K/mm3 (150-400); RDW Standard Deviation 57.8 fL (35.1-46.3); Red Blood Cell Count 2.97 M/mm3 (3.80-5.20); White Blood Cell Count 8.33 K/mm3 (4.00-11.30)
[2020-11-12 05:44] LABS: Bun/Creatinine Ratio 20.9 (12.0-20.0); Calcium, Blood 8.4 mg/dL (8.5-10.1); Creatinine, Blood 1.58 mg/dL (0.40-1.00)
[2020-11-12] MEDS ORDERED: Benadryl Itch28.3 G1 TOP (12:21)
[2020-11-12] MEDS ORDERED: ACET325 PO (12:21)
[2020-11-12] MEDS ORDERED: GLIP2.5ER PO (12:21)
[2020-11-12] MEDS ORDERED: LEVFLO500 PO (12:22)
--- NOTE | 2020-11-12 14:57 | NUR ---
SUMMARY/DISCHARGE PT DISCHARGED TO HOME, PT VERBALZED UNDERSTANDING OF DISCHARGE INSTRUCTIONS REGARDING FOLLOW UP WITH ID, PCP, NEPHRO, AND DR MORGAN, AND WITH NEW MEDS, PT TAKEN OUT SAFELY VIA WHEELCHAIR
== END 2020-11-12 13:15 | disposition home or self-care (01) | DRG 871 ==
LOC: ER 14:31 → ERHOLD 18:33 → MEDS 18:33
PROVIDERS: Internal Medicine; Internal Medicine Interventional Cardiology; Nurse Practitioner Acute Care; Physician Assistant; Radiology Diagnostic Radiology; ADMIT Internal Medicine
PROC: 0T9330Z Drainage of Right Kidney Pelvis with Drainage Device, Percutaneous Approach (ICD-10-PCS; principal; 2020-11-11)
DX: A41.51 Sepsis due to Escherichia coli [E. coli] (principal); N15.1 Renal and perinephric abscess; R65.21 Severe sepsis with septic shock; J85.0 Gangrene and necrosis of lung; N17.9 Acute kidney failure, unspecified; N10 Acute pyelonephritis; Z20.822 Contact with and (suspected) exposure to COVID-19; D63.1 Anemia in chronic kidney disease; I12.9 Hypertensive chronic kidney disease with stage 1 through stage 4 chronic kidney disease, or unspecified chronic kidney disease; E11.65 Type 2 diabetes mellitus with hyperglycemia; D25.9 Leiomyoma of uterus, unspecified; K74.60 Unspecified cirrhosis of liver; N18.30 Chronic kidney disease, stage 3 unspecified; E11.22 Type 2 diabetes mellitus with diabetic chronic kidney disease; Z79.4 Long term (current) use of insulin; Z79.899 Other long term (current) drug therapy; Z98.890 Other specified postprocedural states
CPT/HCPCS: 0241U; 36415; 71045; 71046; 74176; 74183; 75989; 80048; 80053; 82607; 82728; 82746; 82947; 83540; 83550; 83605; 83880; 84145; 85025; 85027; 85610; 85651; 86140; 86850; 86900; 86901; 86923; 87040; 87070; 87075; 87205; 87493; 93005; 93010; 93308; 93312; 93321; 93325; 94762; 96374; 99284-25; A9270; A9270-GY; A9579; C1751; J0360; J0696; J1200; J1650; J1956; J2250; J2543; J3010; J7030; J7040; J7050; P9016

== ENCOUNTER 2023-05-23 14:59 | Inpatient (IN) | payer OTHER ==
[~2023-05-23] VITALS: Ht 157.5 cm; Wt 112.8 kg
[~2023-05-23 14:59] MED LIST changes: +ACET325 PO; +Benadryl Itch28.3 G1 TOP; +GLIP2.5ER PO; +LEVFLO500 PO; +VISBIOME 112.51 EACH PO
[2023-05-23 15:31] LABS: BASOPHILS ABSOLUTE AUTO 0.05 K/mm3 (0.00-0.23); BASOPHILS PERCENT AUTO 0 % (0-2); EOSINOPHILS ABSOLUTE AUTO 0.01 K/mm3 (0.00-0.68); EOSINOPHILS PERCENT AUTO 0 % (0-6); Hematocrit 38.1 % (33.0-51.0); Hemoglobin 12.7 g/dL (11.5-16.0); IMMATURE GRAN ABSOLUTE AUTO 0.18 K/mm3 (0.00-0.10); IMMATURE GRAN PERCENT AUTO 1 % (0-1); LYMPHOCYTES ABSOLUTE AUTO 0.81 K/mm3 (0.84-5.20); LYMPHOCYTES PERCENT AUTO 4 % (21-46); MONOCYTES ABSOLUTE AUTO 1.55 K/mm3 (0.16-1.47); MONOCYTES PERCENT AUTO 8 % (4-13); Mean Corpuscular HGB 26.3 pg (26.0-34.0); Mean Corpuscular HGB Conc 33.3 g/dL (31.5-36.5); Mean Corpuscular Volume 79 fL (80-100); NEUTROPHILS ABSOLUTE AUTO 18.19 K/mm3 (1.96-9.15); NEUTROPHILS PERCENT AUTO 88 % (41-73); Platelet Count 155 K/mm3 (150-400); RDW Coefficient Variation 14.3 % (11.7-14.2); RDW Standard Deviation 41.1 fL (35.1-46.3); Red Blood Cell Count 4.83 M/mm3 (3.80-5.20); White Blood Cell Count 20.79 K/mm3 (4.00-11.30)
[2023-05-23 15:50] LABS: Albumin, Blood 2.2 g/dL (3.4-5.0); Albumin/Globulin Ratio 0.4 (0.8-1.8); Bilirubin, Total 1.2 mg/dL (0.1-1.0); Bun/Creatinine Ratio 14.7 (12.0-20.0); Calcium, Blood 8.2 mg/dL (8.5-10.1); Creatinine, Blood 4.34 mg/dL (0.40-1.00); Globulin, Blood 5.2 g/dL (2.2-4.0); Potassium, Blood 4.4 mmol/L (3.5-5.5); Total Protein, Blood 7.4 g/dL (6.4-8.2)
[2023-05-23 16:06] LABS: Source, Urine Voided
[2023-05-23 16:17] LABS: Appearance, Urine Cloudy (Clear); Bilirubin, Urine Neg (Neg); Blood, Urine 5+ (Neg); Color, Urine Yellow (P-Yellow); Glucose Qualitative, Urine 4+ (Neg); Ketones, Urine Neg (Neg); Leukocyte Esterase, Urine 3+ (Neg); Nitrite, Urine Neg (Neg); Protein, Urine 3+ (Neg); Specific Gravity, Urine 1.015 (1.003-1.022); Urobilinogen, Urine NORM (Normal)
[2023-05-23 16:26] LABS: White Blood Cells, Urine TNTC /hpf (0-5)
[2023-05-23 16:27] LABS: Bacteria Many /hpf; Squamous Epithelial Cells Mod /hpf (Few); Transitional Epithelial Cells Rare /hpf (0-Rare)
[2023-05-23 17:38] LABS: Base Excess Venous -7.9 mmol/L; PCO2 Venous 40 mmHg (38-42); pH Blood Venous 7.29 (7.34-7.37)
[2023-05-23 18:31] LABS: U Amphetamine Screen DETECTED; U Barbituate Screen Not Detected; U Benzodiazapine Screen Not Detected; U Buprenorphine Screen Not Detected; U Cannabinoids Screen Not Detected; U Cocaine Screen Not Detected; U Methadone Screen Not Detected; U Methamphetamine Screen DETECTED; U Opiates Screen Not Detected; U Oxycodone Screen Not Detected; U Phencyclidine Screen Not Detected; U Propoxyphene Screen Not Detected
--- NOTE | 2023-05-23 22:00 | NUR ---
ADMIT NOTE PATIENT ARRIVES TO THE FLOOR VIA WHEELCHAIR. TRANSFERS INDEPENDENTLY TO BED. A&OX4. PATIENT ENDORSES PAIN UPON ARRIVAL. EDUCATION GIVEN ON THE USE OF THE CALL LIGHT. BED IN LOWEST POSITION. FIRE EDUCATION PROVIDED. IGNITION RISK ASSESSED, PT DENIES HAVING IGNITION SOURCES IN POSSESSION.
[2023-05-23 22:03] VITALS: BP 155/79
[2023-05-24 05:03] VITALS: BP 122/86
[2023-05-24 05:04] LABS: BASOPHILS ABSOLUTE AUTO 0.03 K/mm3 (0.00-0.23); BASOPHILS PERCENT AUTO 0 % (0-2); EOSINOPHILS ABSOLUTE AUTO 0.01 K/mm3 (0.00-0.68); EOSINOPHILS PERCENT AUTO 0 % (0-6); Hematocrit 31.5 % (33.0-51.0); Hemoglobin 10.3 g/dL (11.5-16.0); IMMATURE GRAN ABSOLUTE AUTO 0.23 K/mm3 (0.00-0.10); IMMATURE GRAN PERCENT AUTO 2 % (0-1); LYMPHOCYTES ABSOLUTE AUTO 0.76 K/mm3 (0.84-5.20); LYMPHOCYTES PERCENT AUTO 5 % (21-46); MONOCYTES ABSOLUTE AUTO 1.31 K/mm3 (0.16-1.47); MONOCYTES PERCENT AUTO 9 % (4-13); Mean Corpuscular HGB 26.5 pg (26.0-34.0); Mean Corpuscular HGB Conc 32.7 g/dL (31.5-36.5); Mean Corpuscular Volume 81 fL (80-100); NEUTROPHILS ABSOLUTE AUTO 12.24 K/mm3 (1.96-9.15); NEUTROPHILS PERCENT AUTO 84 % (41-73); Platelet Count 99 K/mm3 (150-400); RDW Coefficient Variation 14.6 % (11.7-14.2); RDW Standard Deviation 43.4 fL (35.1-46.3); Red Blood Cell Count 3.88 M/mm3 (3.80-5.20); White Blood Cell Count 14.58 K/mm3 (4.00-11.30)
[2023-05-24 05:46] LABS: Bun/Creatinine Ratio 12.6 (12.0-20.0); Calcium, Blood 7.6 mg/dL (8.5-10.1); Creatinine, Blood 4.21 mg/dL (0.40-1.00); Magnesium, Blood 2.1 mg/dL (1.6-2.4); Potassium, Blood 4.1 mmol/L (3.5-5.5)
--- NOTE | 2023-05-24 06:44 | NUR ---
SHIFT SUMMARY PT IS A&OX4. NORMOTENSIVE, HR 70-90'S, TMAX 99.3, O2 SATS >95% ON RA. C/O L FLANK PAIN, AND MID ABD, MANAGED WITH PRN PERCOCET AND TYLENOL. PT DISHEVELED UPON ARRIVAL TO THE FLOOR. DRIED BM IN PATIENTS PANTS, EXCORIATED IN GROIN, YEAST LIKE. PT REQUESTED TO SHOWER. SHOWERED INDEPENDENTLY WITH SET UP. SLEPT MOST OF THE NOC. UP AD JENNIFER IN ROOM. VOIDING IN BR, ALSO INCONTINENT D/T URGENCY, BRIEF IN PLACE. NO BM THIS SHIFT. TOLERATING ADA DIET, NO N/V. BED IN LOWEST POSITION. CALL LIGHT WITHIN REACH. CALLS APPROPRIATELY FOR NEEDS. FIRE SAFETY CHECKS COMPLETED.
[2023-05-24 07:32] VITALS: BP 149/82
--- NOTE | 2023-05-24 11:26 | NUR ---
PT'S BLOOD SUGAR NOTED TO BE 492. DR MERIDA NOTIFIED. PT'S SLIDING SCALE IS GOING TO BE CHANGED TO HIGH CS AND 15 UNITS WILL BE ADMINISTERED PER ORDERS.
[2023-05-24 15:52] VITALS: BP 134/98
--- NOTE | 2023-05-24 18:05 | NUR ---
SHIFT SUMMARY A&OX4, COOPERATIVE WITH CARE, PLEASANT. COMPLAINED OF PAIN ON HER L SIDE AND TREATED PER EMAR. BECAME TEARFUL A COUPLE TIMES DURING THE SHIFT. PATIENT'S CBG'S WERE >350 ALL DAY. PROVIDER NOTIFIED AND SLIDING SCALE INCREASED TO HCS. DAILY SALES AUDIT CLERK CONSULT ORDERED FOR MORE EDUCATION ABOUT DIET AND MEAL PLANS FOR PATIENT. NS RUNNING AT 50ML/HR. NO ACUTE CHANGES THIS SHIFT. PATIENT CURRENTLY IN BED EATING DINNER. CALL LIGHT WITHIN REACH.
[2023-05-24 19:40] VITALS: BP 137/82
[2023-05-25 04:01] VITALS: BP 154/94
--- NOTE | 2023-05-25 04:40 | NUR ---
SHIFT SUMMARY PT A&O X4, COOPERATIVE WITH CARE. PT COMPLAINTS OF FLANK PAIN-MEDICATED PER EMAR. NS RUNNING @ 50 ML/HR. INDEPENDENT IN ROOM UP TO CHAIR AND BACK TO BED OFF AND ON OVERNIGHT. LLE EDEMA PRESESNT. BED KEPT IN THE LOWEST POSITION WITH CALL LIGHT WITHIN REACH. PT CALLS TO MAKE NEEDS KNOWN.
[2023-05-25 05:12] LABS: BASOPHILS ABSOLUTE AUTO 0.03 K/mm3 (0.00-0.23); BASOPHILS PERCENT AUTO 0 % (0-2); EOSINOPHILS PERCENT AUTO 1 % (0-6); Hematocrit 30.2 % (33.0-51.0); Hemoglobin 9.8 g/dL (11.5-16.0); IMMATURE GRAN ABSOLUTE AUTO 0.23 K/mm3 (0.00-0.10); IMMATURE GRAN PERCENT AUTO 2 % (0-1); LYMPHOCYTES ABSOLUTE AUTO 0.96 K/mm3 (0.84-5.20); LYMPHOCYTES PERCENT AUTO 8 % (21-46); MONOCYTES ABSOLUTE AUTO 1.04 K/mm3 (0.16-1.47); MONOCYTES PERCENT AUTO 8 % (4-13); Mean Corpuscular HGB 25.9 pg (26.0-34.0); Mean Corpuscular HGB Conc 32.5 g/dL (31.5-36.5); Mean Corpuscular Volume 80 fL (80-100); NEUTROPHILS ABSOLUTE AUTO 10.44 K/mm3 (1.96-9.15); NEUTROPHILS PERCENT AUTO 82 % (41-73); Platelet Count 119 K/mm3 (150-400); RDW Coefficient Variation 14.6 % (11.7-14.2); RDW Standard Deviation 42.9 fL (35.1-46.3); Red Blood Cell Count 3.78 M/mm3 (3.80-5.20)
[2023-05-25 05:15] LABS: Mean Platelet Volume 13.4 fL (9.1-12.4)
[2023-05-25 05:41] LABS: Albumin, Blood 1.7 g/dL (3.4-5.0); Albumin/Globulin Ratio 0.4 (0.8-1.8); Bilirubin, Total 0.6 mg/dL (0.1-1.0); Bun/Creatinine Ratio 16.4 (12.0-20.0); Calcium, Blood 7.6 mg/dL (8.5-10.1); Creatinine, Blood 4.02 mg/dL (0.40-1.00); Globulin, Blood 4.4 g/dL (2.2-4.0); Magnesium, Blood 1.9 mg/dL (1.6-2.4); Phosphorus, Blood 2.4 mg/dL (2.5-4.9); Potassium, Blood 3.9 mmol/L (3.5-5.5); Total Protein, Blood 6.1 g/dL (6.4-8.2)
[2023-05-25 07:44] VITALS: BP 144/82
[2023-05-25 15:13] VITALS: BP 147/79
--- NOTE | 2023-05-25 18:51 | NUR ---
SHIFT SUMMARY PT A&OX4. INDEPENDENT IN THE ROOM. PT C/O FEELING CONSTIPATED. BOWEL CARE GIVEN PER EMAR. DIETITION IN TO CONSULT WITH PT. EDUCATION ABOUT ADA DIET PROVIDED. NO C/O PAIN. ECHO PERFORMED AT BEDSIDE TODAY. VSS. PT C/O N/V AND HEART BURN IN AFTERNOON. MEDICATED PER EMAR. PT DID NOT EAT DINNER D/T FEELING NAUSEOUS. BED IN LOWEST POSITION AND CALL LIGHT IN REACH.
[2023-05-25 20:24] VITALS: BP 162/90
[2023-05-26 03:39] VITALS: BP 179/82
--- NOTE | 2023-05-26 05:53 | NUR ---
PT HAD AN AM BP OF 179/82. CALLED DR RIZO. SEE ORDERS. WILL RECHECK.
[2023-05-26 06:39] VITALS: BP 140/70
--- NOTE | 2023-05-26 06:53 | NUR ---
SHIFT SUMMARY PT A7 O, COOPERATIVE WITH CARE. NS RUNNING AT 50. PT INDEPENDEDNT IN ROOM. CONTINENT/INCONTINENT DUE TO URGENCY/FREQUENCY. ATTENDS IN PLACE. PT HAD AN EPISODE OF HIGH BLOOD PRESSURE, NOTIFIED, ORDERS PLACED. MEDICATED PER EMAR. CURRENT BP 140/70. PT KNOWS HOW TO CALL FOR NEEDS. BED KEPT IN LOWEST POSITION WITH CALL LIGTH IN REACH.
[2023-05-26 07:32] VITALS: BP 138/69
[2023-05-26 08:26] LABS: BASOPHILS ABSOLUTE AUTO 0.03 K/mm3 (0.00-0.23); BASOPHILS PERCENT AUTO 0 % (0-2); EOSINOPHILS ABSOLUTE AUTO 0.16 K/mm3 (0.00-0.68); EOSINOPHILS PERCENT AUTO 2 % (0-6); Hematocrit 31.5 % (33.0-51.0); Hemoglobin 10.3 g/dL (11.5-16.0); Mean Corpuscular HGB 26.5 pg (26.0-34.0); Mean Corpuscular HGB Conc 32.7 g/dL (31.5-36.5); Mean Corpuscular Volume 81 fL (80-100); Mean Platelet Volume 12.8 fL (9.1-12.4); Platelet Count 176 K/mm3 (150-400); RDW Coefficient Variation 14.7 % (11.7-14.2); RDW Standard Deviation 43.5 fL (35.1-46.3); Red Blood Cell Count 3.89 M/mm3 (3.80-5.20); White Blood Cell Count 10.55 K/mm3 (4.00-11.30)
[2023-05-26 08:28] LABS: IMMATURE GRAN ABSOLUTE AUTO 0.24 K/mm3 (0.00-0.10); IMMATURE GRAN PERCENT AUTO 2 % (0-1); LYMPHOCYTES ABSOLUTE AUTO 1.11 K/mm3 (0.84-5.20); LYMPHOCYTES PERCENT AUTO 11 % (21-46); MONOCYTES ABSOLUTE AUTO 0.81 K/mm3 (0.16-1.47); MONOCYTES PERCENT AUTO 8 % (4-13); NEUTROPHILS PERCENT AUTO 78 % (41-73)
[2023-05-26 08:53] LABS: Albumin, Blood 1.7 g/dL (3.4-5.0); Anion Gap 9 mmol/L (6-16); Blood Urea Nitrogen 57 mg/dL (8-24); Bun/Creatinine Ratio 15.7 (12.0-20.0); CO2, Blood 18 mmol/L (21-32); Calcium, Blood 7.8 mg/dL (8.5-10.1); Chloride, Blood 110 mmol/L (98-108); Creatinine, Blood 3.64 mg/dL (0.40-1.00); Glomerular Filtration Rate 14 (60-); Glucose, Blood 201 mg/dL (70-99); Potassium, Blood 3.8 mmol/L (3.5-5.5); Sodium, Blood 137 mmol/L (136-145)
[2023-05-26 15:09] VITALS: BP 142/82
--- NOTE | 2023-05-26 19:13 | NUR ---
SHIFT SUMMARY PT A&OX4. PT APPEARED FLAT AND WITHDRAWN THIS MORNING. PT VERBALIZED THIS MORNING FEELING "WORSE THAN WHEN SHE ARRIVED" TO THE HOSPITAL. PT HAD FAMILY AT BEDSIDE TODAY AND DID SEEM TO BECOME MORE CHEERFUL AFTER VISIT. PT WAS ALSO ABLE TO HAVE SEVERAL BM'S TODAY AND REPORTS FEELING BETTER THIS EVENING. PT DID VERBALIZE THAT WHEN SHE GOES HOME SHE DOES NOT WANT TO HAVE TO POKE HERSELF, MONITOR WHAT SHE EATS, AND POKE HERSELF AGAIN FOR THE REST OF HER LIFE. PT STATED SOMETHING TO THE EFFECT THAT SHE WOULD RATHER BE TAKEN OUT BACK AND PUT DOWN. THIS NURSE ENCOURAGED PT THAT IT MAY SEEM OVERWHELMING AT FIRST BUT THAT SHE WOULD LEARN AND IT WOULD BECOME EASIER WITH TIME. PT STATED THAT SHE "JUST WON'T DO IT", REFEREING TO MANAGING HER DM. PT'S BLOOD GLUCOSE WAS IMPROVED FROM YESTERDAY. REPORT GIVEN TO ONCOMING NURSE. BED IN LOWEST POSITION AND CALL LIGHT IN REACH.
[2023-05-26 20:48] VITALS: BP 168/93
[2023-05-27 04:18] VITALS: BP 183/103
[2023-05-27 05:20] LABS: BASOPHILS ABSOLUTE AUTO 0.03 K/mm3 (0.00-0.23); BASOPHILS PERCENT AUTO 0 % (0-2); EOSINOPHILS ABSOLUTE AUTO 0.17 K/mm3 (0.00-0.68); EOSINOPHILS PERCENT AUTO 2 % (0-6); Hematocrit 29.6 % (33.0-51.0); Hemoglobin 9.5 g/dL (11.5-16.0); IMMATURE GRAN ABSOLUTE AUTO 0.38 K/mm3 (0.00-0.10); IMMATURE GRAN PERCENT AUTO 4 % (0-1); LYMPHOCYTES ABSOLUTE AUTO 1.05 K/mm3 (0.84-5.20); LYMPHOCYTES PERCENT AUTO 11 % (21-46); MONOCYTES ABSOLUTE AUTO 0.71 K/mm3 (0.16-1.47); MONOCYTES PERCENT AUTO 8 % (4-13); Mean Corpuscular HGB 26.2 pg (26.0-34.0); Mean Corpuscular HGB Conc 32.1 g/dL (31.5-36.5); Mean Corpuscular Volume 82 fL (80-100); Mean Platelet Volume 12.2 fL (9.1-12.4); NEUTROPHILS ABSOLUTE AUTO 6.89 K/mm3 (1.96-9.15); NEUTROPHILS PERCENT AUTO 75 % (41-73); Platelet Count 226 K/mm3 (150-400); RDW Coefficient Variation 14.7 % (11.7-14.2); RDW Standard Deviation 44.5 fL (35.1-46.3); Red Blood Cell Count 3.62 M/mm3 (3.80-5.20); White Blood Cell Count 9.23 K/mm3 (4.00-11.30)
--- NOTE | 2023-05-27 05:32 | NUR ---
SHIFT SUMMARY PT A&O X4, COOPERATIVE WITH CARE. PT GIVEN MIRALAX DURING PREVIOUS SHIFT. FREQUENT SOFT STOOLS T/O THIS SHIFT. PT IS INDEPENDENT TO BATHROOM. PT SEEMS WITHDRAWN ABOUT TREATMENT PLANS. EXPLAINED THAT SHE DOES NOT SEE HER SELF STAYING COMPLIANT WITH BS CHECKS AND INSULIN. STUART POWERGLIDE WITH BICARB RUNNING @75 MLS/HR. NO NAUSEA OR VOMITING THIS SHIFT. PT DENIES ANY PAIN. BED KEPT IN LOWEST POSITION WITH CALL LIGHT WITHIN REACH. WILL CONTINUE TO MONITOR.
--- NOTE | 2023-05-27 05:59 | NUR ---
PT HAD AN EPISODE OF HIGH BLOOD PRESSURE THIS AM. CALLED DR RIZO. SEE ORDERS.
[2023-05-27 06:04] LABS: Albumin, Blood 1.8 g/dL (3.4-5.0); Anion Gap 7 mmol/L (6-16); Blood Urea Nitrogen 47 mg/dL (8-24); Bun/Creatinine Ratio 14.1 (12.0-20.0); CO2, Blood 22 mmol/L (21-32); Calcium, Blood 7.7 mg/dL (8.5-10.1); Chloride, Blood 110 mmol/L (98-108); Creatinine, Blood 3.34 mg/dL (0.40-1.00); Glomerular Filtration Rate 16 (60-); Glucose, Blood 202 mg/dL (70-99); Phosphorus, Blood 3.3 mg/dL (2.5-4.9); Potassium, Blood 3.9 mmol/L (3.5-5.5); Sodium, Blood 139 mmol/L (136-145)
--- NOTE | 2023-05-27 06:42 | NUR ---
DR DEAL ORDERED TO CHANGE THE RATE ON SODIUM BICARB INFUSION FROM 75 ML/HR TO 50 ML/HR.
[2023-05-27 07:14] VITALS: BP 156/75
[2023-05-27 15:19] VITALS: BP 155/83
--- NOTE | 2023-05-27 18:52 | NUR ---
SHIFT SUMMARY PT AxOx4. PLEASANT AND COOPERATIVE WITH CARE, BUT WITHDRAWN EMOTIONALLY. PT VERBALLY EXPRESSES DISAPPOINTMENT OVER EXPECTED HOME CARE FOR HER DIABETES. PT STATES "SHE DOESN'T THINK SHE CAN OR WILL DO IT" WHEN REFERRING TO BLOOD GLUCOSE MONITORING AND INSULIN INJECTIONS. PT EDUCATION PROVIDED AND THERAPEUTIC COMMUNICATION PROVIDED. PT WOULD BENEFIT FROM OUTPATIENT DIABETES EDUCATION IF AVAILABLE. PT RECEIVED IV ABX AND SODIUM BICARB INFUSION THIS SHIFT. PT STARTED ON NEW MEDICATIONS FOR HTN. PT ALSO HAD SHOWER TODAY. PT IS CURRENTLY RESTING IN BED WITH CALL LIGHT IN REACH. DENIES ANY NEEDS AT THIS TIME. CURRENT PLAN IS FOR POSSIBLE DC HOME TOMORROW.
[2023-05-27 20:44] VITALS: BP 141/78
[2023-05-28 03:14] VITALS: BP 140/77
--- NOTE | 2023-05-28 04:48 | NUR ---
SUMMARY NO NEW ISSUES NOTED. PT SLEPT THROUGHOUT SHIFT. PT EAGER TO GO HOME. CALL LIGHT IN REACH.
[2023-05-28 05:57] LABS: Hematocrit 29.3 % (33.0-51.0); Hemoglobin 9.3 g/dL (11.5-16.0)
[2023-05-28 06:54] LABS: Albumin, Blood 1.7 g/dL (3.4-5.0); Anion Gap 6 mmol/L (6-16); Blood Urea Nitrogen 36 mg/dL (8-24); Bun/Creatinine Ratio 13.8 (12.0-20.0); CO2, Blood 23 mmol/L (21-32); Calcium, Blood 7.8 mg/dL (8.5-10.1); Chloride, Blood 111 mmol/L (98-108); Glomerular Filtration Rate 21 (60-); Glucose, Blood 167 mg/dL (70-99); Phosphorus, Blood 3.5 mg/dL (2.5-4.9); Sodium, Blood 140 mmol/L (136-145)
[2023-05-28 07:31] VITALS: BP 161/84
[2023-05-28 15:44] VITALS: BP 126/70
--- NOTE | 2023-05-28 16:08 | NUR ---
SHIFT SUMMARY NO ACUTE CHANGES THIS SHIFT. PT REPORTS FEELING ABOUT THE SAME WHEN SHE CAME IN, WHICH IS BETTER THAN YESTERDAYS SHIFT. SHE IS INDEPENDENT IN THE ROOM, FLUIDS WITH BICARB CONTINUE. PT REPORTED PAIN IN THE ABDOMEN /10. TREATED PER EMAR. BED IS IN THE LOWEST POSITION WITH CALL LIGHT IN REACH.
[2023-05-28 19:43] VITALS: BP 146/83
--- NOTE | 2023-05-29 04:04 | NUR ---
SHIFT SUMMARY PATIENT A/Ox4, COOPERATIVE, WITHDRAWN. DENIES PAIN NOR DISCOMFORT. INDEPENDANT IN ROOM. NO ACUTE CHANGES NOTED OVERNIGHT. BED LOCKED AND IN LOWEST POSITION, CALL LIGHT WITHIN REACH.
[2023-05-29 05:29] VITALS: BP 168/80
[2023-05-29 06:00] LABS: Hematocrit 28.2 % (33.0-51.0); Hemoglobin 8.8 g/dL (11.5-16.0)
[2023-05-29 07:00] LABS: Albumin, Blood 1.8 g/dL (3.4-5.0); Anion Gap 4 mmol/L (6-16); Blood Urea Nitrogen 28 mg/dL (8-24); Bun/Creatinine Ratio 10.7 (12.0-20.0); CO2, Blood 25 mmol/L (21-32); Calcium, Blood 7.6 mg/dL (8.5-10.1); Chloride, Blood 113 mmol/L (98-108); Creatinine, Blood 2.62 mg/dL (0.40-1.00); Glomerular Filtration Rate 21 (60-); Glucose, Blood 144 mg/dL (70-99); Magnesium, Blood 1.9 mg/dL (1.6-2.4); Phosphorus, Blood 4.1 mg/dL (2.5-4.9); Potassium, Blood 4.2 mmol/L (3.5-5.5); Sodium, Blood 142 mmol/L (136-145)
[2023-05-29 08:06] VITALS: BP 155/105
[2023-05-29 15:48] VITALS: BP 136/84
--- NOTE | 2023-05-29 17:37 | NUR ---
DAYSHIFT SUMMARY 326 Patient alert & oriented x4, independent in room. Patient c/o several episodes of diarrhea, juni mauricio MD aware & banatrol ordered. Normal saline infusing continously. CBGs 153 (breakfast), 193 (lunch) & 168 (dinner), SSI & scheduled insulin administred. Patient verbalized frusteration with new diagnosis of diabetes, she stated "I can't even enjoy life, or even go on a date, because Ill have to do insulin and take heart pills, and my fingers will be so numb and painful". Provided education on diabetes medications and lifestyle changes such as diet and weightloss, can improve quality of life and diabetes prognosis. Patient stated she knows, but is not motivated. Reviewed meal time insulin with patient, and explain scheduled vs sliding scale. Showed patient how to prime needle and dial up insulin offered for patient to self administer insulin. Patient declined to self administer at this time. Will continue to offer support for insulin management. Vitals stable, Will continue plan of care.
[2023-05-29 19:16] VITALS: BP 151/83
[2023-05-30 02:54] VITALS: BP 181/94
--- NOTE | 2023-05-30 04:02 | NUR ---
SHIFT SUMMARY PATIENT A/Ox4, CALM, WITHDRAWN, IN BED WATCHING TV. DENIES PAIN NOR DISCOMFORT. PG TO STUART, PATENT, INFUSING NS AT 50mL/HR. INDEPENDANT IN ROOM. NO ACUTE CHANGES NOTED OVERNIGHT. BED LOCKED, CALL LIGHT WITHIN REACH.
[2023-05-30 07:37] VITALS: BP 168/94
[2023-05-30 08:29] LABS: Albumin, Blood 1.9 g/dL (3.4-5.0); Anion Gap 4 mmol/L (6-16); Blood Urea Nitrogen 23 mg/dL (8-24); Bun/Creatinine Ratio 8.7 (12.0-20.0); CO2, Blood 26 mmol/L (21-32); Calcium, Blood 7.6 mg/dL (8.5-10.1); Chloride, Blood 113 mmol/L (98-108); Creatinine, Blood 2.65 mg/dL (0.40-1.00); Glomerular Filtration Rate 21 (60-); Glucose, Blood 178 mg/dL (70-99); Magnesium, Blood 1.7 mg/dL (1.6-2.4); Phosphorus, Blood 3.5 mg/dL (2.5-4.9); Potassium, Blood 4.6 mmol/L (3.5-5.5); Sodium, Blood 143 mmol/L (136-145)
[2023-05-30 16:06] VITALS: BP 134/75
[2023-05-30 16:07] VITALS: BP 134/75
--- NOTE | 2023-05-30 18:07 | NUR ---
PT IS A/OX4, PLEASANT AND COOPERATIVE. THE PT IS UP IND IN HER ROOM . THE PT WAS MEDICATED FOR PAIN X1 TODAY WITH TYLENOL. PT WAS MEDICATED FOR NAUSEA X2 TODAY. THE PTS PROCARDIA WAS INCREASED DUE TO HYPERTENSION BY DR. MERIDA. THIS EVENING THE PT HAD SOME EMISIS DUE OT RICE GETTING STUCK IN THE BACK OF HER THROAT PER THE PT. CALL LIGHT IN REACH. BED IN THE LOW POSITION
[2023-05-30 20:10] VITALS: BP 142/79
[2023-05-31 04:22] VITALS: BP 184/90
--- NOTE | 2023-05-31 05:00 | NUR ---
SHIFT SUMMARY VERY UNEVENTFUL EVENING, PT SLEPT HAD NO C/O PAIN SHOWED NO DISTRESS, JUST WANTED TO SLEEP. WHENEVER I ENTERED ROOM PT WAS ALSEEP SHE STATED SHE WOULD CALL IF NEEDING ANYTHING
[2023-05-31 07:06] LABS: Hematocrit 29.5 % (33.0-51.0); Hemoglobin 8.7 g/dL (11.5-16.0)
[2023-05-31 07:19] LABS: Albumin, Blood 1.9 g/dL (3.4-5.0); Anion Gap 4 mmol/L (6-16); Blood Urea Nitrogen 19 mg/dL (8-24); Bun/Creatinine Ratio 7.5 (12.0-20.0); CO2, Blood 24 mmol/L (21-32); Calcium, Blood 7.6 mg/dL (8.5-10.1); Chloride, Blood 114 mmol/L (98-108); Creatinine, Blood 2.54 mg/dL (0.40-1.00); Glomerular Filtration Rate 22 (60-); Glucose, Blood 200 mg/dL (70-99); Magnesium, Blood 1.6 mg/dL (1.6-2.4); Phosphorus, Blood 3.5 mg/dL (2.5-4.9); Potassium, Blood 4.8 mmol/L (3.5-5.5); Sodium, Blood 142 mmol/L (136-145)
[2023-05-31 07:44] VITALS: BP 176/89
[2023-05-31 15:19] VITALS: BP 128/73
[2023-05-31 15:34] LABS: C DIFFICILE DNA NEGATIVE (Negative)
--- NOTE | 2023-05-31 17:31 | NUR ---
SHIFT SUMMARY PT A&OX4 AND CALLS APPROPRIATELY. PT COMPLAINS OF DIARRHEA, STOOL SAMPLE SENT AND CDIFF RULED OUT. PT VSS. NO ACUTE EVENTS DURING SHIFT. PT LEFT IN A POSITION OF SAFETY WITH BED LOCKED AND IN LOW POSITION, NONSKID SOCKS IN PLACE, ROOM CLEAR OF DEBRIS, AND CALL LIGHT WITHIN REACH.
[2023-05-31 20:13] VITALS: BP 115/73
[2023-06-01 04:53] VITALS: BP 173/85
--- NOTE | 2023-06-01 04:54 | NUR ---
SHIFT SUMMARY PATIENT A/Ox4, CALM, PLEASANT, SITTING UP IN BED WATCHING TV. DENIES PAIN NOR DISCOMFORT. PG TO STUART, PATENT, INFUSING NS AT 75mL/HR. INDEPENDANT IN ROOM. NO ACUTE CHANGES NOTED OVERNIGHT. BED LOCKED, CALL LIGHT WITHIN REACH.
[2023-06-01 07:54] LABS: BASOPHILS ABSOLUTE AUTO 0.04 K/mm3 (0.00-0.23); BASOPHILS PERCENT AUTO 1 % (0-2); EOSINOPHILS ABSOLUTE AUTO 0.12 K/mm3 (0.00-0.68); EOSINOPHILS PERCENT AUTO 1 % (0-6); Hematocrit 29.9 % (33.0-51.0); Hemoglobin 9.5 g/dL (11.5-16.0); IMMATURE GRAN ABSOLUTE AUTO 0.26 K/mm3 (0.00-0.10); IMMATURE GRAN PERCENT AUTO 3 % (0-1); LYMPHOCYTES ABSOLUTE AUTO 0.94 K/mm3 (0.84-5.20); LYMPHOCYTES PERCENT AUTO 11 % (21-46); MONOCYTES ABSOLUTE AUTO 0.39 K/mm3 (0.16-1.47); MONOCYTES PERCENT AUTO 5 % (4-13); Mean Corpuscular HGB 27.5 pg (26.0-34.0); Mean Corpuscular HGB Conc 31.8 g/dL (31.5-36.5); Mean Corpuscular Volume 86 fL (80-100); NEUTROPHILS ABSOLUTE AUTO 6.96 K/mm3 (1.96-9.15); NEUTROPHILS PERCENT AUTO 80 % (41-73); RDW Coefficient Variation 14.7 % (11.7-14.2); RDW Standard Deviation 46.7 fL (35.1-46.3); Red Blood Cell Count 3.46 M/mm3 (3.80-5.20); White Blood Cell Count 8.71 K/mm3 (4.00-11.30)
[2023-06-01 07:57] VITALS: BP 188/94
[2023-06-01 08:00] LABS: Anion Gap 6 mmol/L (6-16); Blood Urea Nitrogen 25 mg/dL (8-24); CO2, Blood 20 mmol/L (21-32); Calcium, Blood 7.9 mg/dL (8.5-10.1); Chloride, Blood 116 mmol/L (98-108); Glomerular Filtration Rate 22 (60-); Glucose, Blood 170 mg/dL (70-99); Magnesium, Blood 1.7 mg/dL (1.6-2.4); Phosphorus, Blood 4.2 mg/dL (2.5-4.9); Potassium, Blood 5.3 mmol/L (3.5-5.5); Sodium, Blood 142 mmol/L (136-145)
[2023-06-01 08:39] LABS: Platelet Count 205 K/mm3 (150-400)
[2023-06-01] MEDS ORDERED: Celexa20 MG PO (12:01)
[2023-06-01] MEDS ORDERED: NIFE60ER PO (12:02)
[2023-06-01] MEDS ORDERED: METO25ER PO (12:02)
[2023-06-01] MEDS ORDERED: SODBIC650 PO (12:02)
[2023-06-01] MEDS ORDERED: PANT40 PO (12:02)
[2023-06-01] MEDS ORDERED: INSULANPEN SC (12:02)
[2023-06-01] MEDS ORDERED: HUMALOG KW100 UNIT/1 SC (12:02)
== END 2023-06-01 14:36 | disposition home or self-care (01) | DRG 871 ==
LOC: ER 14:59 → MEDS 21:21
PROVIDERS: Emergency Medicine; Family Medicine; Internal Medicine Nephrology; Nurse Practitioner Acute Care; ADMIT Family Medicine
PROC: B24BZZZ Ultrasonography of Heart with Aorta (ICD-10-PCS; principal; 2023-05-25)
DX: A41.51 Sepsis due to Escherichia coli [E. coli] (principal); I50.33 Acute on chronic diastolic (congestive) heart failure; N17.0 Acute kidney failure with tubular necrosis; N10 Acute pyelonephritis; N17.9 Acute kidney failure, unspecified; E87.20 Acidosis, unspecified; I13.0 Hypertensive heart and chronic kidney disease with heart failure and stage 1 through stage 4 chronic kidney disease, or unspecified chronic kidney disease; Z68.42 Body mass index [BMI] 45.0-49.9, adult; R65.20 Severe sepsis without septic shock; E11.22 Type 2 diabetes mellitus with diabetic chronic kidney disease; N18.9 Chronic kidney disease, unspecified; K74.60 Unspecified cirrhosis of liver; E86.0 Dehydration; E11.65 Type 2 diabetes mellitus with hyperglycemia; E86.9 Volume depletion, unspecified; D63.1 Anemia in chronic kidney disease; E88.09 Other disorders of plasma-protein metabolism, not elsewhere classified; R31.9 Hematuria, unspecified; E66.01 Morbid (severe) obesity due to excess calories; F41.8 Other specified anxiety disorders; K59.00 Constipation, unspecified; R60.0 Localized edema; R19.7 Diarrhea, unspecified; Z86.19 Personal history of other infectious and parasitic diseases; Z79.4 Long term (current) use of insulin; Z91.199 Patient's noncompliance with other medical treatment and regimen due to unspecified reason
CPT/HCPCS: 36415; 74176; 80048; 80053; 80069; 81001; 82010; 82803; 82947; 83036; 83605; 83735; 84100; 85014; 85018; 85025; 87040; 87077; 87086; 87186; 87493; 93005; 93010; 93306; 96361; 96365; 96375; 99285-25; A9270; J0360; J0696; J0881; J1644; J1815; J2270; J2405; J7030

== ENCOUNTER → 2023-10-27 | Outpatient (CLI) | payer OTHER ==
[~2023-10-27] MED LIST changes: +BUME1 PO; +CALC.25 PO; +Celexa20 MG PO; +INSULANPEN SC; +LOSA25 PO; +METO25ER PO; +NIFE60ER PO; +PANT40 PO; +SODBIC650 PO; +TRAM50 PO
== END ==
LOC: LAB SHORT 16:37 → LAB 16:37
PROVIDERS: Internal Medicine Hematology & Oncology
DX: D50.0 Iron deficiency anemia secondary to blood loss (chronic) (principal)
CPT/HCPCS: 82728; 83540; 83550